=== PATIENT | female | born 1985 | race Caucasian/White ===

== ENCOUNTER → 2025-02-17 14:06 | Outpatient (REF) | payer OTHER, SELFPAY ==
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
--- OUTSIDE RECORDS SUMMARY | 2025-02-13 23:59 | XMS_ITS | Continuity of Care Document ---
Author Organization [facility] Primary [facility] [place] Address [address] [place] [address]- Care Team Providers Care Field Court Researcher Name Role Phone Moncho LOCO, Isamar Schneider Primary Care Physician Encounter [facility] Date(s): 01/14/25 - 02/13/25 [facility] [address] [place], [place] [address] Encounter Type: Triage Allergies, Adverse Reactions, [...] Refills, Maintenance, 01/23/25 10:41:00 AM EDT, Tablet, [facility]/pharmacy #[id number], Partial fill upon patient request if the [...] 12:43:00 PM EDT, Route to Pharmacy Electronically, [facility]/pharmacy #[id number], 172, cm, 12/18/24 12:41:00 EDT, Height, 65, kg, 09/13/24 18:50:00 EDT, Dry Weight Start Date: 01/07/25 Status: Ordered Medication Dispense Status: Completed Quantity: 30.0 Unit: capsule Total Allowed Fills: 3 Fills Dispensed: 0 LORazepam 0.5 mg oral tablet 1 tablet = 0.5 mg, By Mouth, Daily, PRN as needed for anxiety, # 28 tablet, 0 Refills, Maintenance,01/22/25 12:24:00 PM EDT, Tablet, [facility]/pharmacy #[id number], Partial fill upon patient request if [...] Refills, Maintenance, 10/06/24 10:38:00 AM EDT, Cream, [facility]/pharmacy #[id number], Partial fill upon patient request if [...] 11 Refills, Maintenance, 12/02/24 1:01:00 PM EDT, [facility]/pharmacy #[id number], Partial fill upon patient request if [...] Team Personnel Name: Isamar Ivan NP Position: [facility] PCO Associate Professional Member Role: PCP Address: [address] [place] [address] Telecom: Care Team Related Persons Name: ROSALVA ROSEN Name: ARTHUR ROSEN Name: SHERRIE SCHWAB Insurance Providers Guarantor name: ERNST SCHWAB Health Plan Information #: 1 Payer: [facility] Payer Identifier: NA Member Number: [id number] Group Number: [id number] Subscriber Identifier: NA Relationship to Subscriber: self Coverage Type: NA Coverage Verification Date: NA Telecom: NA Address: NA
--- NOTE | 2025-02-17 14:18 | ECG_ITS ---
Test Reason : CHECK QT Blood Pressure : */* mmHG Vent. Rate : 50 BPM Atrial Rate : 50 BPM P-R Int : 136 ms QRS Dur : 86 ms QT Int : 428 ms P-R-T Axes : 43 65 50 degrees QTcB Int : 390 ms Sinus bradycardia Low voltage QRS Borderline ECG No previous ECGs available Referred By: Lashell Carlson Electronically Signed By: ZAFAR RENO
[2025-02-17 14:44] LABS: MANUAL DIFF FLAG NO
[2025-02-17 15:15] LABS: Hematocrit 41.6 % (37.0-47.0); Hemoglobin 13.7 g/dl (12.0-16.0); Imm Gran Abs Auto 0.01 X10*3/uL (0.00-0.03); Imm Gran Pct Auto 0.2 % (0.0-0.4); Lymphocytes Absolute Auto 2.1 X10*3/uL (1.2-4.9); Mean Corpuscular HGB Conc 32.9 g/dl (31.0-35.0); Mean Corpuscular Hemoglobin 31.6 pg (27.0-33.0); Mean Corpuscular Volume 95.9 fL (80.0-98.0); NRBC Abs Auto 0.000 X10*3/uL (0.0-0.012); NRBC Pct Auto 0.0 /100WBC (0.0-0.2); Platelet Count 184 X10*3/uL (160-400); Red Blood Count 4.34 X10*6/uL (4.20-5.50); White Blood Count 4.4 X10*3/uL (4.8-10.8)
[2025-02-17 15:27] LABS: Appearance Urine Clear; Glucose Urine UA Negative (Negative); PH 7.0 (5.0-9.0); Specific Gravity - Urine 1.010 (1.005-1.025)
[2025-02-17 16:14] LABS: Alanine Aminotransferase 24 U/L (0-31); Albumin Level 4.9 g/dL (3.5-5.0); Alkaline Phosphatase 44 U/L (39-117); Anion Gap 10 (12-20); Aspartate Amino Transferase 23 U/L (5-31); Blood Urea Nitrogen 13 mg/dL (9-16); Calcium 9.0 mg/dL (8.4-10.2); Carbon Dioxide 28 mmol/L (22-29); Chloride 108 mmol/L (96-108); Cholesterol 175 mg/dL (<200); Estimated Glomerular Filt Rate > 60; Iron 82 mcg/dL (30-160); Magnesium 1.9 mg/dL (1.6-2.6); Percent Iron Saturation 35 % (15-50); Potassium 3.7 mmol/L (3.3-5.1); Sodium 142 mmol/L (135-145); Total Iron Binding Capacity 231 mcg/dL (228-428); Total Protein 7.1 g/dL (6.5-8.0); Unsaturated Iron Binding 149 ug/dL
[2025-02-17 16:29] LABS: Free T4 (Free Thyroxine) 0.99 ng/dL (0.71-1.85); Thyroid Stimulating Hormone 1.17 uIU/mL (0.32-4.0)
[2025-02-17 16:36] LABS: Vitamin B12 260 pg/mL (200-900)
[2025-02-17 17:13] LABS: Parathyroid Hormone Intact 92.7 pg/mL (8.7-77.1)
[2025-02-17 17:54] LABS: Folate 8.3 ng/mL (> or = 4.0)
--- OUTSIDE RECORDS SUMMARY | 2025-02-17 18:34 | XMS_ITS | Clinical Summary ---
Author Organization [facility] Address [address] [place] [address] Care Team Providers Care Supervisor Advertising Dispatch Clerks Name Role Phone Unavailable Primary Care Provider Unavailabl e Surgical History Surgery Date Site/Laterality Comments EYE SURGERY 2002 Right PROCEDURE: HISTORICAL EYE SURGERY; COMMENT: retinal melanoma, cataract?, residual anoscoria VAGINOSCOPY 02/01/2010 PROCEDURE: AL COLPOSCOPY CERVIX BX CERVIX & ENDOCRV CURRETAGE; COMMENT: LGSIL CERVICAL BIOPSY W/ LOOP ELECTRODE EXCISION 2013 PROCEDURE: AL CONIZATION CERVIX W/WO D&C RPR ELTRD EXC CATARACT EXTRACTION 2004 Right PROCEDURE: HISTORICAL CATARACT REMOVAL Medical History Medical History Date Comments LGSIL on Pap smear of cervix 2009 DX: LGSIL on Pap smear of cervix Raynauds phenomenon 10/05/2016 DX:Raynauds phenomenon; COMMENT: Hands and feet History of malignant melanoma of eye 2002 DX:History of malignant melanoma of eye; COMMENT: Very rare right iris melanoma, radioactive seeds placed, then removed, cataract surgery, glaucoma sequela Glaucoma 10/05/2016 DX:Glaucoma; COM MENT: R eye s/p melanoma Anxiety 10/05/2016 DX:Anxiety PTSD (post-traumatic stress disorder) DX:PTSD (post-traumatic stress disorder); COMMENT: childhood Melanoma in situ (CMS/HCC V2 4, CMS/HCC V28) DX:Melanoma in situ (HCC); C OMMENT: right iris Eating disorder DX:Eating disord er Family History Medical History Relation Name Comments Asthma Brother Diabetes Father Other: retinal vein occlusion Father Other: brain tumor Grandparent GF Stroke Maternal Grandfather COPD Maternal Grandmother Other cancer Maternal Grandmother Arthritis Mother Depression Mother Hyperlipidemia Mother nephrolithias is Hypertension Mother Other: cholelithiasis Mother Other: neuropathy Mother idiopathic , feet Thyroid disease Mother Other: ewings sarcoma Other cousin COPD Paternal Grandmother Relation Name Status Comments Brother Alive Father Alive Grandparent Maternal Grandfather Maternal Grandmother Mother Alive Other Paternal Grandfather Paternal Grandmother Sister Alive Social History Tobacco Use Types Packs/Day Years Used Date Smoking Tobacco: Never Smokeless Tobacco: Never Alcohol Use Standard Drinks/Week Comments Yes 0 (1 standard drink = 0.6 oz pur e alcohol) Comments Unknown Sex and Gender Information Value Date Recorded Sex Assigned at Not on file Legal Sex Female 12:15 PM EST Gender Identity Not on file Sexual Orientation Not on file Obstetrics History Plan of Treatment Health Maintenance Due Date Last Done Comments Breast Cancer Screening 1984 Hepatitis B Vaccines (1 of 3 - 19+ 3-dose series) 2003 Cervical Cancer Screening: P ap Smear 2005 HPV Vaccines (1 - 3-dose SCD M series) 2011 Depression Screening 04/23/2024 COVID-19 Vaccine ( - 2023-2 5 season) 2024 Influenza Vaccine (#1) 2024 DTaP,Tdap,and Td Vaccines (2 - Td or Tdap) 08/16/2030 08/16/2020 RSV Immunization Adult Patie nts (1 - 1-dose 75+ series) 2059 HIB Vaccines Aged Out No longer eligi ble based on patient's age to complete this topic Hepatitis A Vaccines Aged Out No long er eligible based on patient's age to complete this topic IPV Vaccines Aged Out No longer eligi ble based on patient's age to complete this topic MMR Vaccines Aged Out No longer eligi ble based on patient's age to complete this topic Meningococcal ACWY Vaccine Aged Out N o longer eligible based on patient's age to complete this topic Meningococcal B Vaccine Aged Out No l onger eligible based on patient's age to complete this topic Pneumococcal Vaccine: Pediat rics (0 to 5 Years) and At-Risk Patients (6 to 49 Years) Aged Out No longer eligi ble based on patient's age to complete this topic RSV Immunization Patients Un luna 20 months Aged Out No longer eligible b ased on patient's age to complete this topic Varicella Vaccines Aged Out No longer eligible based on patient's age to complete this topic
--- OUTSIDE RECORDS SUMMARY | 2025-02-17 18:34 | XMS_ITS | Encounter Summary ---
Author Organization [facility] Address [address] [place] [address] Care Team Providers Care Sole Cementer Name Role Phone Unavailable Primary Care Provider Unavailabl e Encounter Details Date Type Department Care Team Description 09/05/2016 Records Encounter Delivery Room [address] [place] [id number] Provider, Not In System Social History Tobacco Use Types Packs/Day Years Used Date Smoking Tobacco: Never Alcohol Use Standard Drinks/Week Comments Yes 2 (1 standard drink = 0.6 oz pur e alcohol) Sex and Gender Information Value Date Recorded Sex Assigned at Not on file Gender Identity Not on file Sexual Orientation Not on file documented as of this encounter Functional Status Functional Status Response Date of Assess ment Pt deaf or have serious difficulty hearing? No 09/04/2016 Pt blind or have difficulty seeing, even with gl asses? No 09/04/2016 Do you have serious difficul ty walking or climbing stairs? (Retired) No 09/04/2016 Pt have difficulty dressing or bathing? (Retired ) No 09/04/2016 Pt have difficulty doing errands alone? (Retired ) No 09/04/2016 Cognitive Status Response Date of Assessm ent Pt have difficulty concentra ting, remembering, making decisions? (Retired) No 09/04/2016 documented as of this encounter Plan of Treatment Not on file documented as of this encounter Visit Diagnoses Not on filedocumented in this encounter
--- OUTSIDE RECORDS SUMMARY | 2025-02-17 18:34 | XMS_ITS | Encounter Summary ---
Author Organization [facility] Address [address] [place] [address] Care Team Providers Care Instrumentation Instructor Name Role Phone Unavailable Primary Care Provider Unavailabl e Encounter Details Date Type Department Care Team Description 08/23/2016 Records Encounter Delivery Room [address] [place] [id number] Provider, Not In System Social History Tobacco Use Types Packs/Day Years Used Date Smoking Tobacco: Never Alcohol Use Standard Drinks/Week Comments Yes 2 (1 standard drink = 0.6 oz pur e alcohol) Comments Yes Sex and Gender Information Value Date Recorded Sex Assigned at Not on file Gender Identity Not on file Sexual Orientation Not on file documented as of this encounter Functional Status Functional Status Response Date of Assess ment Pt deaf or have serious difficulty hearing? No 08/01/2016 Pt blind or have difficulty seeing, even with gl asses? No 08/01/2016 Do you have serious difficul ty walking or climbing stairs? (Retired) No 08/01/2016 Pt have difficulty dressing or bathing? (Retired ) No 08/01/2016 Pt have difficulty doing errands alone? (Retired ) No 08/01/2016 Cognitive Status Response Date of Assessm ent Pt have difficulty concentra ting, remembering, making decisions? (Retired) No 08/01/2016 documented as of this encounter Plan of Treatment Not on file documented as of this encounter Visit Diagnoses Not on filedocumented in this encounter
--- OUTSIDE RECORDS SUMMARY | 2025-02-17 18:34 | XMS_ITS | Clinical Summary ---
Author Organization [facility] Address [address] [place] [address] Care Team Providers Care Retort Load Expediter Name Role Phone Unavailable Primary Care Provider Unavailabl e Allergies Active Allergy Reactions Criticality Noted Date Comments Zolpidem Shortness Of Breath High 09/04/2016 Possible allergy. Took w reglan and pepcid. Doesn't know which cause reaction Famotidine Shortness Of Breath High 09/04/2016 Metoclopramide Shortness Of Breath High 09/04/2016 Poss allergy Medications Medication Sig Dispensed Refills Start Date End Date Status escitalopram (LEXAPRO) 10 MG tablet Take 0.5 tablets (5 mg total) by mouth daily. 30 tablet 0 12/30/2013 Active Vit-Fe Fumarate-FA ( PLUS) 27-1 MG TABS tablet Take 1 tablet by mouth every morning after breakfast. 0 Active metoclopramide (REGLAN) tablet 10 mg Take 1 tablet (10 mg total) by mouth every 6 (six) hours as needed (nausea/vomiting) . 30 tablet 0 08/01/2016 Active famotidine (PEPCID) 20 MG tablet Take 1 tablet (20 mg total) by mouth 2 (two) times a day. 60 tablet 1 08/01/2016 Active zolpidem (AMBIEN) 5 MG tablet Take 1 tablet (5 mg total) by mouth every night at bedtime as needed for sleep. 5 tablet 0 08/01/2016 Active Active Problems Problem Noted Date Diagnosed Date Vaginal delivery 09/07/2016 Social History Tobacco Use Types Packs/Day Years Used Date Smoking Tobacco: Never Alcohol Use Standard Drinks/Week Comments Yes 2 (1 standard drink = 0.6 oz pur e alcohol) Sex and Gender Information Value Date Recorded Sex Assigned at Not on file Gender Identity Not on file Sexual Orientation Not on file Last Filed Vital Signs Vital Sign Reading Time Taken Comments Blood Pressure 108/72 09/07/2016 10:00 AM EDT Pulse 66 09/07/2016 10:00 AM EDT Temperature 36.4 C (97.6 F) 09/07/2016 10:00 AM EDT Respiratory Rate 18 09/07/2016 10:00 AM EDT Oxygen Saturation 100% 09/07/2016 10:00 AM EDT Inhaled Oxygen Concentration - - Weight 70.3 kg (155 lb) 09/05/2016 10:00 AM EDT Height 172.7 cm (5' 8 ) 09/05/2016 10:00 AM EDT Body Mass Index 23.57 09/05/2016 10:00 AM EDT Plan of Treatment Health Maintenance Due Date Last Done Comments Hepatitis B Vaccines (1 of 3 - 3-dose series) 1984 Hepatitis C Screening 1984 COVID-19 Vaccine (#1) 1984 Depression Screening 1996 Preventative Health Evaluation 2002 DTap / Tdap / Td (1 - Tdap) 2003 Cervical Cancer Screening (P ap Smear) 2005 Influenza Vaccine (#1) 2024 Pneumococcal Vaccine Aged Out No long er eligible based on patient's age to complete this topic RSV Ped < 20 months Aged Out No longe r eligible based on patient's age to complete this topic Advance Directives For more information, please contact: [phone] Latest Code Status on File Code Status Date Activated Date Inactivated Comments Full Code 09/04/2016 8:38 PM 09/07/2016 7:23 PM This code status was ascertained in the following way: discussion with patient.
--- OUTSIDE RECORDS SUMMARY | 2025-02-17 18:34 | XMS_ITS | Data Portability ---
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 Plan of Treatment Reminders Order Date Submit Date Provider Last Modified By Organization Details Last Modified Time Details Appointments None recorded. Lab toxicolog y screen, urine 2019 020 [email or web address] In-Office Order, Internal Use Only DO Not Attach Compendium DO Not Attach Compendium, Do Not Delete/merge, [id number] 0 16:01:59 HIV 1+2 AB + HIV 1 p24 Ag, qualitati ve immunoass ay, serum 2019 Formerly [facility], [address] [place] [address], [id number] 0 12:51:25 CBC w/ auto diff 2019 Formerly [facility], [address] [place] [address], [id number] 0 12:51:17 RPR (rapid plasma reagin), serum 2019 Formerly [facility], [address] [place] [address], 0 12:51:26 HBsAg (hepatiti s B surface Ag), confirmat ion, serum 2019 Formerly [facility], [address] [place] [address], [id number] 0 12:51:25 rubella igg Ab screen, serum 2019 Formerly [facility], [address] [place] [address], [id number] 0 12:51:15 hepatitis C Ab, serum 2019 [facility]ly [facility], [address] [place] [address], [id number] 0 12:51:26 glucose tolerance test, gestation al, 1-hour [address] [facility], [address] [place] [address], [address] 1 16:32:18 blood group antibody screen, serum or plasma [address] [facility], [address] [place] [address], [facility] 1 16:32:18 chromosom e analysis panel, FISH, blood or tissue [address] [facility], [address] [place] [address], [facility] 1 16:32:19 urinalysi s, dipstick 2019 [email or web address] In-Office Order, Internal Use Only DO Not Attach Compendium DO Not Attach Compendium, Do Not Delete/merge, [id number] 0 08:17:55 CT + NG DNA, PCR, unspecifi ed specimen 2019 Formerly [facility], [address] [place] [address], [id number] 0 12:01:49 culture, urine 2019 [facility]ly [facility], [address] [place] [address], [id number] 0 08:27:59 test, urine 2019 020 [email or web address] In-Office Order, Internal Use Only DO Not Attach Compendium DO Not Attach Compendium, Do Not Delete/merge, [id number] 0 10:33:27 culture, vaginal, yeast - PLEAE RUN CULTURE WITH ID AND SENSITIVI TIES 2018 019 [email or web address] [facility], [address] [facility], [facility], [place], [address], 9 09:58:07 pap, IG + HPV 2018 019 [facility]ly [facility], [address] [facility], [place], [address] 9 11:53:57 urinalysi s, dipstick 2018 019 [email or web address] In-Office Order, Internal Use Only DO Not Attach Compendium DO Not Attach Compendium, Do Not Delete/merge, 9 17:25:21 ph, vaginal fluid 2017 018 [email or web address] In-Office Order, Internal Use Only DO Not Attach Compendium DO Not Attach Compendium, Do Not Delete/merge, 8 14:24:11 wet mount, vaginal 2017 018 [email or web address] In-Office Order, Internal Use Only DO Not Attach Compendium DO Not Attach Compendium, Do Not Delete/merge, 8 14:24:12 otto wet prep 2017 018 [email or web address] In-Office Order, Internal Use Only DO Not Attach Compendium DO Not Attach Compendium, Do Not Delete/merge, 8 14:24:11 whiff test, vaginal fluid 2017 018 [email or web address] In-Office Order, Internal Use Only DO Not Attach Compendium DO Not Attach Compendium, Do Not Delete/merge, 8 14:24:12 urinalysi s, dipstick 2017 018 [email or web address] In-Office Order, Internal Use Only DO Not Attach Compendium DO Not Attach Compendium, Do Not Delete/merge, 8 16:22:28 urinalysi s, dipstick 2016 017 [email or web address] In-Office Order, Internal Use Only DO Not Attach Compendium DO Not Attach Compendium, Do Not Delete/merge, [id number] 7 17:21:35 Referral None recorded. Procedures None recorded. Surgeries None recorded. Imaging None recorded. Medication Orders triamcino lone acetonide 0.1 % topical ointment 2019 020 INTERFACE [facility] #[facility]69, [address] [place], [address], 0 10:33:36 betametha sone valerate 0.1 % topical ointment [address]/Pharmacy #0969, [address] [place], [address], 0 09:05:27 hydrocort isone 2.5 % topical ointment [address]/[facility]armacy #0969, [address] [place], [address], 0 09:05:20 Larissia 0.1 mg-20 mcg tablet [address]/[facility]armacy #0969, [address] [place], [address], 0 09:05:14 Cleocin 2 % vaginal cream 2017 018 [email or web address] [facility], [address] [place], [address], 9 16:25:44 fluconazo le 150 mg tablet [address]/Pharmacy #0969, [address] [place], [address], 0 09:05:25 Larissia 0.1 mg-20 mcg tablet [address]/[facility]armacy #[facility]69, [address] [place], [address], 0 09:05:14 betametha sone valerate 0.1 % topical ointment 2017 018 [email or web address] [facility], [address] [place], [address], 0 09:05:27 nystatin- triamcino lone 100,000 unit/gram -0.1 % topical ointment 2016 017 [email or web address] [facility], [address] [place], [address], 8 13:41:00 Aviane 0.1 mg-20 mcg tablet 2016 017 [email or web address] [facility] #[facility], [address] [place], [address], 0 09:05:14 Patient TargetsNo targets recorded. Patient Instructions Encounter Date Encounter Id Patient Instructions Last Modified By Organization Details Last Modified Time 01/08/2017 [id number] B E encouraged Discussed wt, diet, nutrition, exercise. If history of normal pap and neg HPV will continue with Pap/HPV every 3 years, otherwise per guidelines. Annual clinical assistant professor exam encouraged every year or visits as needed for any problems. Not available 01/08/2017 17:28:24 01/16/2018 [id number] BE encouraged Discussed wt, diet, nutrition, exercise. If history of normal pap and neg HPV will continue with Pap/HPV every 3 years, otherwise per guidelines. Annual clinical assistant professor exam encouraged every year or visits as needed for any problems. Not available 01/16/2018 16:22:27 03/16/2020 [id number] BE encouraged Discussed wt, diet, nutrition, exercise. If history of normal pap and neg HPV will continue with Pap/HPV every 3 years, otherwise per guidelines. Annual clinical assistant professor exam encouraged every year or visits as needed for any problems. Not available 03/16/2020 10:54:33 Reason for Referral None Reported. Results Created Date Observation Date Name Description Value Unit Range Abnormal Flag Note LastModifiedBy Organization Detail LastModifiedTime 04/07/20 20 04/07/2020 toxic ology scree n, urine Marijuana (THC) negati ve Not Available In-Office Order Internal Use Only DO Not Attach Compendium DO Not Attach Compendium, Do Not Delete/merge, [id number] 04/07/2020 15:29:44 04/07/20 20 04/07/2020 toxic ology scree n, urine Cocaine (GRADY 300) negati ve Not Available In-Office Order Internal Use Only DO Not Attach Compendium DO Not Attach Compendium, Do Not Delete/merge, 04/07/2020 15:29:44 04/07/20 20 04/07/2020 toxic ology scree n, urine Opiates (MOP) negati ve Not Available In-Office Order Internal Use Only DO Not Attach Compendium DO Not Attach Compendium, Do Not Delete/merge, [id number] 04/07/2020 15:29:44 04/07/20 20 04/07/2020 toxic ology scree n, urine Amphetamine (AMP) negati ve Not Available In-Office Order Internal Use Only DO Not Attach Compendium DO Not Attach Compendium, Do Not Delete/merge, 04/07/2020 15:29:44 04/07/20 20 04/07/2020 toxic ology scree n, urine Methamphetam ine (MET) negati ve Not Available In-Office Order Internal Use Only DO Not Attach Compendium DO Not Attach Compendium, Do Not Delete/merge, [id number] 04/07/2020 15:29:44 04/07/20 20 04/07/2020 toxic ology scree n, urine Barbiturates (BAR) negati ve Not Available In-Office Order Internal Use Only DO Not Attach Compendium DO Not Attach Compendium, Do Not Delete/merge, 04/07/2020 15:29:44 04/07/20 20 04/07/2020 toxic ology scree n, urine Benzodiazepi jarrett (BZO) negati ve Not Available In-Office Order Internal Use Only DO Not Attach Compendium DO Not Attach Compendium, Do Not Delete/merge, [id number] 04/07/2020 15:29:44 04/07/20 20 04/07/2020 toxic ology scree n, urine Methylenedio xymethamphet amine (MDMA Ecstasy) negati ve Not Available In-Office Order Internal Use Only DO Not Attach Compendium DO Not Attach Compendium, Do Not Delete/merge, [id number] 04/07/2020 15:29:44 04/07/20 20 04/07/2020 toxic ology scree n, urine Methadone (MTD) negati ve Not Available In-Office Order Internal Use Only DO Not Attach Compendium DO Not Attach Compendium, Do Not Delete/merge, [id number] 04/07/2020 15:29:44 04/07/20 20 04/07/2020 toxic ology scree n, urine Oxycodone (OXY) negati ve Not Available In-Office Order Internal Use Only DO Not Attach Compendium DO Not Attach Compendium, Do Not Delete/merge, [id number] 04/07/2020 15:29:44 04/07/20 20 04/07/2020 toxic ology scree n, urine Phencyclidin e (PCP) negati ve Not Available In-Office Order Internal Use Only DO Not Attach Compendium DO Not Attach Compendium, Do Not Delete/merge, [id number] 04/07/2020 15:29:44 04/07/20 20 04/07/2020 toxic ology scree n, urine Tricyclic Antidepressa nts (TCA) negati ve Not Available In-Office Order Internal Use Only DO Not Attach Compendium DO Not Attach Compendium, Do Not Delete/merge, [id number] 04/07/2020 15:29:44 03/16/20 20 03/16/2020 pregn tong test, urine Result positi ve Not Available In-Office Order Internal Use Only DO Not Attach Compendium DO Not Attach Compendium, Do Not Delete/merge, [id number] 03/16/2020 10:30:15 01/17/20 18 01/16/2018 otto wet prep Hyphae Absent Not Available In-Office Order Internal Use Only DO Not Attach Compendium DO Not Attach Compendium, Do Not Delete/merge, [id number] 01/16/2018 14:17:40 01/17/20 18 01/16/2018 otto wet prep Yeast Absent Not Available In-Office Order Internal Use Only DO Not Attach Compendium DO Not Attach Compendium, Do Not Delete/merge, [facility] 01/16/2018 14:17:40 01/17/20 18 01/16/2018 wet mount , vagin al Wet Mount, Vaginal WBCs > 10 per hpf, no yeast, no Clue Cells, LB seen Not Available In-Office Order Internal Use Only DO Not Attach Compendium DO Not Attach Compendium, Do Not Delete/merge, [facility] 01/16/2018 14:17:39 01/17/20 18 01/16/2018 ph, vagin al fluid Other 4.0 Not Available In-Office Order Internal Use Only DO Not Attach Compendium DO Not Attach Compendium, Do Not Delete/merge, [facility] 01/16/2018 14:17:37 01/09/20 17 01/10/2017 urina lysis , dipst ick Interpretati on negati ve Not Available In-Office Order Internal Use Only DO Not Attach Compendium DO Not Attach Compendium, Do Not Delete/merge, [facility] 01/08/2017 11:03:31 01/09/2001/10/2017 urina lysis , dipst ick Leukocytes Negati ve Not Available In-Office Order Internal Use Only DO Not Attach Compendium DO Not Attach Compendium, Do Not Delete/merge, [facility] 01/08/2017 11:03:31 01/09/2001/10/2017 urina lysis , dipst ick Nitrite negati ve Not Available In-Office Order Internal Use Only DO Not Attach Compendium DO Not Attach Compendium, Do Not Delete/merge, [facility] 01/08/2017 11:03:31 01/09/2001/10/2017 urina lysis , dipst ick Urobilinogen Normal : 0.2 mg/dl Not Available In-Office Order Internal Use Only DO Not Attach Compendium DO Not Attach Compendium, Do Not Delete/merge, [id number] 01/08/2017 11:03:31 01/09/20 17 01/10/2017 urina lysis , dipst ick Protein Negati ve Not Available In-Office Order Internal Use Only DO Not Attach Compendium DO Not Attach Compendium, Do Not Delete/merge, [facility] 01/08/2017 11:03:31 01/09/2001/10/2017 urina lysis , dipst ick Blood Negati ve Not Available In-Office Order Internal Use Only DO Not Attach Compendium DO Not Attach Compendium, Do Not Delete/merge, [facility] 01/08/2017 11:03:31 01/09/2001/10/2017 urina lysis , dipst ick Ketone Negati ve Not Available In-Office Order Internal Use Only DO Not Attach Compendium DO Not Attach Compendium, Do Not Delete/merge, [facility] 01/08/2017 11:03:31 01/09/20 17 01/10/2017 urina lysis , dipst ick Bilirubin Negati ve Not Available In-Office Order Internal Use Only DO Not Attach Compendium DO Not Attach Compendium, Do Not Delete/merge, [facility] 01/08/2017 11:03:01/09/20 17 01/10/2017 urina lysis , dipst ick Glucose Negati ve Not Available In-Office Order Internal Use Only DO Not Attach Compendium DO Not Attach Compendium, Do Not Delete/merge, [facility] 01/08/2017 11:03:01/09/2001/10/2017 urina lysis , dipst ick Appearance Clear Not Available In-Offi ce Order Internal Use Only DO Not Attach Compendium DO Not Attach Compendium, Do Not Delete/merge, [facility] 01/08/2017 11:03:01/09/2001/10/2017 urina lysis , dipst ick Color Yellow Not Available In-Office Order Internal Use Only DO Not Attach Compendium DO Not Attach Compendium, Do Not Delete/merge, [facility] 01/08/2017 11:03:01/09/2001/10/2017 urina lysis , dipst ick pH 7.0 Not Available In-Office Order Internal Use Only DO Not Attach Compendium DO Not Attach Compendium, Do Not Delete/merge, [facility] 01/08/2017 11:03:01/17/20 18 01/16/2018 urina lysis , dipst ick Interpretati on negati ve Not Available In-Office Order Internal Use Only DO Not Attach Compendium DO Not Attach Compendium, Do Not Delete/merge, [facility] 01/16/2018 13:54:11 01/17/20 18 01/16/2018 urina lysis , dipst ick Leukocytes Small: +1 Not Available In-Office Order Internal Use Only DO Not Attach Compendium DO Not Attach Compendium, Do Not Delete/merge, [facility] 01/16/2018 13:54:11 01/17/20 18 01/16/2018 urina lysis , dipst ick Nitrite negati ve Not Available In-Office Order Internal Use Only DO Not Attach Compendium DO Not Attach Compendium, Do Not Delete/merge, [facility] 01/16/2018 13:54:11 01/17/20 18 01/16/2018 urina lysis , dipst ick Urobilinogen Normal : 0.2 mg/dl Not Available In-Office Order Internal Use Only DO Not Attach Compendium DO Not Attach Compendium, Do Not Delete/merge, [facility] 01/16/2018 13:54:01/17/20 18 01/16/2018 urina lysis , dipst ick Protein Trace Not Available In-Office Order Internal Use Only DO Not Attach Compendium DO Not Attach Compendium, Do Not Delete/merge, [facility] 01/16/2018 13:54:01/17/20 18 01/16/2018 urina lysis , dipst ick pH 5.0 Not Available In-Office Order Internal Use Only DO Not Attach Compendium DO Not Attach Compendium, Do Not Delete/merge, [facility] 01/16/2018 13:54:01/17/20 18 01/16/2018 urina lysis , dipst ick Blood Negati ve Not Available In-Office Order Internal Use Only DO Not Attach Compendium DO Not Attach Compendium, Do Not Delete/merge, [facility] 01/16/2018 13:54:01/17/20 18 01/16/2018 urina lysis , dipst ick Ketone Negati ve Not Available In-Office Order Internal Use Only DO Not Attach Compendium DO Not Attach Compendium, Do Not Delete/merge, [facility] 01/16/2018 13:54:11 01/17/20 18 01/16/2018 urina lysis , dipst ick Bilirubin Negati ve Not Available In-Office Order Internal Use Only DO Not Attach Compendium DO Not Attach Compendium, Do Not Delete/merge, [id number] 01/16/2018 13:54:11 01/17/20 18 01/16/2018 urina lysis , dipst ick Glucose Negati ve Not Available In-Office Order Internal Use Only DO Not Attach Compendium DO Not Attach Compendium, Do Not Delete/merge, [id number] 01/16/2018 13:54:11 01/17/20 18 01/16/2018 urina lysis , dipst ick Appearance Clear Not Available In-Offi ce Order Internal Use Only DO Not Attach Compendium DO Not Attach Compendium, Do Not Delete/merge, [id number] 01/16/2018 13:54:11 01/17/20 18 01/16/2018 urina lysis , dipst ick Color Dark Yellow Not Available In-Office Order Internal Use Only DO Not Attach Compendium DO Not Attach Compendium, Do Not Delete/merge, [id number] 01/16/2018 13:54:11 01/17/20 18 01/16/2018 whiff test, vagin al fluid Result negati ve Not Available In-Office Order Internal Use Only DO Not Attach Compendium DO Not Attach Compendium, Do Not Delete/merge, [id number] 01/16/2018 14:23:59 03/07/20 19 03/07/2019 fungu s, cultu re, unspe cifie d speci men specimen description VAGINA L Not Available [address], [address], 03/13/2019 09:24:39 03/07/20 19 03/07/2019 fungu s, cultu re, unspe cifie d speci men special requests NONE Not Available [address], [address], 03/13/2019 09:24:39 03/07/20 19 03/13/2019 fungu s, cultu re, unspe cifie d speci men culture CANDID A ALBICA NS SENT TO REFER ENCE [facility] FOR SUSCE PTIBI LITIE S SEE SEPAR ATE REPOR T Not Available [address], [address], 03/13/2019 09:24:39 03/07/20 19 03/13/2019 fungu s, cultu re, unspe cifie d speci men report status FINAL 2018 Not Available [address], [address], 03/13/2019 09:24:39 03/07/20 19 03/07/2019 HPV DNA, high- risk HPV MRNA E6/E7 Negati ve negati ve APTIM A HPV assay detec ts 14 high risk HPV types (HPV 16,18 ,31,3 3,35, 39,45 ,51,5 2,56, 58,59 ,66,6 8). The assay is FDA appro jose m for testi ng ThinP rep liqui d Pap vials but not FDA appro jose m for detec ting HPV in SureP ath liqui d Pap speci mens. In-ho use valid ation has shown the assay can detec t all [facility] types [facility] Not Available [facility] [address] [place], [address] 03/14/2019 11:53:55 03/07/20 19 03/07/2019 pap, IG + HPV report Report Final Gynec ologi geoff Cytol ogy Repor t ----- ----- ----- ----- ----- ----- ----- ----- ----- ----- ----- ----- ThinP rep Pap Test, HPV Scree n, Refle x HPV Genot ype SPECI MEN ADEQU ACY: SATIS FACTO RY FOR EVALU ATION ; ENDOC ERVIC AL/TR ANSFO RMATI ON ZONE COMPO NENT PRESE NT. INTER PRETA TION: NEGAT ETTA FOR INTRA EPITH ELIAL SIMEON Khan OR INDIRA MARQUEZ . Ching Mukherjee d: Bertha De Los Santos, [place] (ASCP ) ----- ----- ----- ----- ----- ----- ----- ----- ----- ----- ----- ----- CLINI GEOFF INFOR MATIO N: LMP: ng Speci men Sourc e: Cervi x, Endoc ervix HPV RESUL TS: HPV mRNA E6/E7 [id number] Appro jose m: 03/10 Negat etta REF RANGE : Negat etta CPT Codes : 25129 ICD Codes : Z01.4 19 Not Available [facility] [address] [place], [address] 03/14/2019 11:53:57 03/07/20 19 03/17/2019 funga l susce ptibi lity fungal susceptibili ty See Below < > Test Reque sted Antim icrob ial Susce ptibi lity - Funga l (Yeas ts and Molds ) Sourc e: Genit al Body Site: Vagin a Free Text Sourc es: Genit al Final Repor t Janet da albic ans Ident ifica tion by MALDI -TOF Test cristina mccoy and johanna doranri stics deter mined by [facility]. See Compl iance State ment B: [email or web address] m/CS Susce ptibi lity Resul ts Organ ism: Janet da albic ans 5-Flu orocy yoselin e Inter preta tion: NO INTER PRETA TION THUY (ug/m L): 0.25 Ampho teric in B Inter preta tion: NO INTER PRETA TION THUY (ug/m L): 0.5 Anidu lafun gin Inter preta tion: SUSCE PTIBL E THUY (ug/m L): <=0.0 16 Caspo fungi n Inter preta tion: SUSCE PTIBL E THUY (ug/m L): 0.016 Fluco nazol e Inter preta tion: SUSCE PTIBL E THUY (ug/m L): 0.25 Itrac onazo le Inter preta tion: NO INTER PRETA TION THUY (ug/m L): 0.06 Micaf ungin Inter preta tion: SUSCE PTIBL E THUY (ug/m L): 0.016 Posac onazo le Inter preta tion: NO INTER PRETA TION THUY (ug/m L): 0.03 Voric onazo le Inter preta tion: SUSCE PTIBL E THUY (ug/m L): <=0.0 08 Order Comme nts THUY=M inimu m Inhib itory Giselle ntrat ion MEC=M inimu m Effec tive Giselle ntrat ion S=Alyssa cepti ble, I=Int ermed iate, R=Res istan t, NonS= Nonsu scept ible, IND=I ndete rmina te, SDD=S uscep tibil ity is dose depen dent, None= Inter preti ve guide lines are not avail able H=Hig h, L=Low , *=Abn ormal , C=Cri tical Test( s) perfo rmed at [facility] Labor atori es [address] [place] [address] Antoni Vaughn do, MD, MS, Labor atory Dire tor Not Available [address], [address], 03/17/2019 16:33:31 03/07/20 19 03/13/2019 misce llane ous test test name SENSIT IVITIE S TO CLOTRI MAZOLE AND TERCON AZOLE Not Available [address], [address], 03/28/2019 10:39:11 03/07/20 19 03/28/2019 misce llane ous test result Final Funga l Testi ng Repor t Sourc e: Vagin al Speci es ID Provi ded: Janet da albic ans RESUL TS OF ANTIF UNGAL SUCEP TIBIL ITY TESTI NG: DRUGS : mcg.m L Clotr imazo le (CLOT ): <=0.0 3 INTER PRETA TION: No Estab lishe d Break point s Terco nazol e (TERC ): <=0.1 25 INTER PRETA TION: No Estab lishe d Break point s Metho dolog y: CLSI M27 Testi ng perfo rmed by: Katrin Angela thy (Anti funga l Susce ptibi lity) Comme nt: Pleas e note that inter preta tions for antif ungal susce ptibi lity testi ng are based on those publi shed in the CLSI M60 docum ent. These brad ed inter preta tions apply only to speci fic Janet da speci es. Perfo rmed at: [facility]: Path Lab: Fungu s Testi ng Lab, [address] [place], [address] Not Available [address], [address], 03/28/2019 10:39:11 03/07/20 19 03/07/2019 urina lysis , dipst ick Interpretati on negati ve Not Available In-Office Order Internal Use Only DO Not Attach Compendium DO Not Attach Compendium, Do Not Delete/merge, [id number] 03/07/2019 16:15:27 03/07/20 19 03/07/2019 urina lysis , dipst ick Leukocytes Negati ve Not Available In-Office Order Internal Use Only DO Not Attach Compendium DO Not Attach Compendium, Do Not Delete/merge, [id number] 03/07/2019 16:15:27 03/07/20 19 03/07/2019 urina lysis , dipst ick Nitrite negati ve Not Available In-Office Order Internal Use Only DO Not Attach Compendium DO Not Attach Compendium, Do Not Delete/merge, [id number] 03/07/2019 16:15:27 03/07/20 19 03/07/2019 urina lysis , dipst ick Urobilinogen Normal : 0.2 mg/dl Not Available In-Office Order Internal Use Only DO Not Attach Compendium DO Not Attach Compendium, Do Not Delete/merge, [id number] 03/07/2019 16:15:27 03/07/20 19 03/07/2019 urina lysis , dipst ick Protein Negati ve Not Available In-Office Order Internal Use Only DO Not Attach Compendium DO Not Attach Compendium, Do Not Delete/merge, [id number] 03/07/2019 16:15:27 03/07/20 19 03/07/2019 urina lysis , dipst ick pH 5.0 Not Available In-Office Order Internal Use Only DO Not Attach Compendium DO Not Attach Compendium, Do Not Delete/merge, [id number] 03/07/2019 16:15:27 03/07/20 19 03/07/2019 urina lysis , dipst ick Blood Negati ve Not Available In-Office Order Internal Use Only DO Not Attach Compendium DO Not Attach Compendium, Do Not Delete/merge, [id number] 03/07/2019 16:15:27 03/07/20 19 03/07/2019 urina lysis , dipst ick Ketone Negati ve Not Available In-Office Order Internal Use Only DO Not Attach Compendium DO Not Attach Compendium, Do Not Delete/merge, [id number] 03/07/2019 16:15:27 03/07/20 19 03/07/2019 urina lysis , dipst ick Bilirubin Negati ve Not Available In-Office Order Internal Use Only DO Not Attach Compendium DO Not Attach Compendium, Do Not Delete/merge, [id number] 03/07/2019 16:15:27 03/07/20 19 03/07/2019 urina lysis , dipst ick Glucose Negati ve Not Available In-Office Order Internal Use Only DO Not Attach Compendium DO Not Attach Compendium, Do Not Delete/merge, [id number] 03/07/2019 16:15:27 03/07/20 19 03/07/2019 urina lysis , dipst ick Appearance Clear Not Available In-Offi ce Order Internal Use Only DO Not Attach Compendium DO Not Attach Compendium, Do Not Delete/merge, [id number] 03/07/2019 16:15:27 03/07/20 19 03/07/2019 urina lysis , dipst ick Color Yellow Not Available In-Office Order Internal Use Only DO Not Attach Compendium DO Not Attach Compendium, Do Not Delete/merge, [id number] 03/07/2019 16:15:27 03/17/20 20 03/17/2020 cultu re, urine urine source URINE, CLEAN CATCH Not Available [facility] [address] [place] [address], [id number] 03/19/2020 08:27:59 03/17/20 20 03/17/2020 cultu re, urine micro culture result Steril e or <1,000 col/mL . Not Available [facility] [address] [place], [address] 03/19/2020 08:27:59 03/17/2003/17/2020 CT + NG DNA, PCR, unspe cifie d speci men neisseria gonorrhoeae RNA, tma Negati ve negati ve Not Available [facility] [address] [place], [address] 03/19/2020 12:01:49 03/17/2003/17/2020 CT + NG DNA, PCR, unspe cifie d speci men chlamydia trachomatis RNA, tma Negati ve negati ve Not Available [facility] [address] [place], [address] 03/19/2020 12:01:49 04/01/2004/01/2020 urina lysis , dipst ick Interpretati on negati ve Not Available In-Office Order Internal Use Only DO Not Attach Compendium DO Not Attach Compendium, Do Not Delete/merge, [id number] 03/16/2020 09:14:46 04/01/20 20 04/01/2020 urina lysis , dipst ick Leukocytes Negati ve Not Available In-Office Order Internal Use Only DO Not Attach Compendium DO Not Attach Compendium, Do Not Delete/merge, [id number] 03/16/2020 09:14:46 04/01/20 20 04/01/2020 urina lysis , dipst ick Nitrite negati ve Not Available In-Office Order Internal Use Only DO Not Attach Compendium DO Not Attach Compendium, Do Not Delete/merge, [id number] 03/16/2020 09:14:46 04/01/20 20 04/01/2020 urina lysis , dipst ick Urobilinogen Normal : 0.2 mg/dl Not Available In-Office Order Internal Use Only DO Not Attach Compendium DO Not Attach Compendium, Do Not Delete/merge, [id number] 03/16/2020 09:14:46 04/01/20 20 04/01/2020 urina lysis , dipst ick Protein Negati ve Not Available In-Office Order Internal Use Only DO Not Attach Compendium DO Not Attach Compendium, Do Not Delete/merge, [id number] 03/16/2020 09:14:46 12/10/04/01/2020 urina lysis , dipst ick pH 5.0 Not Available In-Office Order Internal Use Only DO Not Attach Compendium DO Not Attach Compendium, Do Not Delete/merge, [id number] 03/16/2020 09:14:46 04/01/20 20 04/01/2020 urina lysis , dipst ick Blood Negati ve Not Available In-Office Order Internal Use Only DO Not Attach Compendium DO Not Attach Compendium, Do Not Delete/merge, [id number] 03/16/2020 09:14:46 04/01/20 20 04/01/2020 urina lysis , dipst ick Specific [place] 1.000 Not Available In-Off ice Order Internal Use Only DO Not Attach Compendium DO Not Attach Compendium, Do Not Delete/merge, [id number] 03/16/2020 09:14:46 04/01/20 20 04/01/2020 urina lysis , dipst ick Ketone Negati ve Not Available In-Office Order Internal Use Only DO Not Attach Compendium DO Not Attach Compendium, Do Not Delete/merge, [id number] 03/16/2020 09:14:46 04/01/20 20 04/01/2020 urina lysis , dipst ick Bilirubin Negati ve Not Available In-Office Order Internal Use Only DO Not Attach Compendium DO Not Attach Compendium, Do Not Delete/merge, [id number] 03/16/2020 09:14:46 04/01/20 20 04/01/2020 urina lysis , dipst ick Glucose Negati ve Not Available In-Office Order Internal Use Only DO Not Attach Compendium DO Not Attach Compendium, Do Not Delete/merge, [id number] 03/16/2020 09:14:46 04/01/20 20 04/01/2020 urina lysis , dipst ick Appearance Clear Not Available In-Offi ce Order Internal Use Only DO Not Attach Compendium DO Not Attach Compendium, Do Not Delete/merge, [id number] 03/16/2020 09:14:46 04/01/20 20 04/01/2020 urina lysis , dipst ick Color Yellow Not Available In-Office Order Internal Use Only DO Not Attach Compendium DO Not Attach Compendium, Do Not Delete/merge, [id number] 03/16/2020 09:14:46 04/07/2004/07/2020 rubel la igg Ab scree n, serum rubella antibody IgG 3.2 ai >0.9 Posit etta. IgG antib patti to Rubel la detec elliot. IgG antib patti level s are at a level consi dered to indic ate posit etta immun ity. Not Available [facility] [address] [place], [id number] 04/08/2020 12:51:15 04/07/2004/07/2020 CBC w/ auto diff white blood cell 8.5 thou/ uL 4.0-11 .0 Not Available [facility] [address], [place], [facility] 04/08/2020 12:51:17 04/07/2004/07/2020 CBC w/ auto diff red blood cell 4.29 mil/u L 4.00-5 .40 Not Available [facility] [address], [facility] 04/08/2020 12:51:17 04/07/2004/07/2020 CBC w/ auto diff hemoglobin 13.6 g/dL 11.7-1 5.7 Not Available [facility] [address], [place], [facility] 04/08/2020 12:51:17 04/07/2004/07/2020 CBC w/ auto diff hematocrit 42.3 % 35.0-4 7.0 Not Available [facility] [address], [facility] 04/08/2020 12:51:17 04/07/2004/07/2020 CBC w/ auto diff mean corpuscular volume 99 fL 80-100 Not Available [facility] [address] [place], [id number] 04/08/2020 12:51:17 04/07/2004/07/2020 CBC w/ auto diff mean corpuscular hemoglobin 31.7 pg 26.0-3 4.0 Not Available [facility] [address] [place], [id number] 04/08/2020 12:51:17 04/07/20 20 04/07/2020 CBC w/ auto diff mean corpuscular hemoglobin concentratio n 32.2 g/dL 30.0-3 6.0 Not Available [facility] [address] [place], [id number] 04/08/2020 12:51:17 04/07/20 20 04/07/2020 CBC w/ auto diff red cell distribution width 11.9 % 11.5-1 4.5 Not Available [facility] [address], [facility] 04/08/2020 12:51:17 04/07/20 20 04/07/2020 CBC w/ auto diff platelets 209 thou/ uL 150-45 0 Not Available [facility] [address], [facility] 04/08/2020 12:51:17 04/07/20 20 04/07/2020 CBC w/ auto diff mean platelet volume 11.1 fL 9.4-12 .5 Not Available [facility] [address], [facility] 04/08/2020 12:51:17 04/07/20 20 04/07/2020 CBC w/ auto diff neutrophil, percentage 69.7 % Not Available [facility] [address] [place], [facility] 04/08/2020 12:51:17 04/07/20 20 04/07/2020 CBC w/ auto diff lymphocyte, percentage 24.6 % Not Available [facility] [place] [facility] [address] [place], [id number] 04/08/2020 12:51:17 04/07/20 20 04/07/2020 CBC w/ auto diff monocyte, percentage 4.4 % Not Available [facility] [place] [address] [place], [address] 04/08/2020 12:51:17 04/07/20 20 04/07/2020 CBC w/ auto diff eosinophil, percentage 0.9 % Not Available [facility] [address], [facility] 04/08/2020 12:51:17 04/07/20 20 04/07/2020 CBC w/ auto diff basophil, percentage 0.2 % Not Available [facility] [address], [facility] 04/08/2020 12:51:17 04/07/20 20 04/07/2020 CBC w/ auto diff neutrophil, absolute 5.88 thou/ uL 2.00-7 .50 Not Available [facility] [address] [place], [id number] 04/08/2020 12:51:17 04/07/20 20 04/07/2020 CBC w/ auto diff lymphocyte, absolute 2.08 thou/ uL 1.50-4 .50 Not Available [facility] [address], [facility] 04/08/2020 12:51:17 04/07/20 20 04/07/2020 CBC w/ auto diff monocyte, absolute 0.37 thou/ uL 0.20-1 .50 Not Available [facility] [address], [facility] 04/08/2020 12:51:17 04/07/20 20 04/07/2020 CBC w/ auto diff eosinophil, absolute 0.08 thou/ uL 0.00-0 .70 Not Available [facility] [address], [facility] 04/08/2020 12:51:17 04/07/20 20 04/07/2020 CBC w/ auto diff basophil, absolute 0.02 thou/ uL 0.00-0 .20 Not Available [facility] [address], [facility] 04/08/2020 12:51:17 04/07/2004/07/2020 CBC w/ auto diff NRBC, absolute 0.00 thou/ uL 0.00-0 .02 Not Available [facility] [address], [facility] 04/08/2020 12:51:17 04/07/2004/07/2020 CBC w/ auto diff NRBC, percentage 0.0 % <5.0 Not Available [facility] [address], [facility] 04/08/2020 12:51:17 04/07/20 20 04/07/2020 CBC w/ auto diff Ig, absolute 0.02 thou/ uL 0.00-0 .10 Not Available [facility] [address], [facility] 04/08/2020 12:51:17 04/07/20 20 04/07/2020 CBC w/ auto diff Ig, percentage 0.2 thou/ uL Not Available [facility] [address] [place], [id number] 04/08/2020 12:51:17 04/07/20 20 04/07/2020 ABO group , blood bb patient history check No previo us WHCT histor y. Not Available [facility] [address] [place] [address], [id number] 04/08/2020 12:51:22 04/07/20 20 04/07/2020 ABO group , blood blood type interpretati on O Not Available [facility] [address] [place] [address], [id number] 04/08/2020 12:51:22 04/07/20 20 04/07/2020 Rh only bb patient history check No previo us WHCT histor y. Not Available [facility] [address] [place] [address], [id number] 04/08/2020 12:51:22 04/07/20 20 04/07/2020 Rh only Rh interpretati on Positi ve Not Available [facility] [address] [place] [address], [address] 04/08/2020 12:51:22 04/07/20 20 04/07/2020 HBsAg (hepa titis B surfa ce Ag), confi rmati on, serum hepatitis B surface antigen Non-Re active non-re active Not Available [facility] [address] [place] [address], [address] 04/08/2020 12:51:25 04/07/20 20 04/07/2020 HIV 1+2 AB + HIV 1 p24 Ag, quali tativ e immun oassa y, serum HIV 1/2 antigen Non-Re active non-re active Resul ts show no evide nce of infec tion by HIV 1/2. If clini jhonny indic ated, repea t CMIA or test by nucle ic acid ampli ficat ion. Not Available [facility] [address] [place], [address] 04/08/2020 12:51:25 04/07/20 20 04/07/2020 hepat itis C Ab, serum hepatitis C Ab reflex HCV PCR quant 0.06 Non-Re active S/co non-re active Not Available [facility] [address] [place], [address] 04/08/2020 12:51:26 04/07/20 20 04/07/2020 RPR (rapi d plasm a reagi n), serum T. pallidum Ab 0.04 Non-re active S/co non-re active Not Available [facility] [address] [place], [address] 04/08/2020 12:51:26 04/07/20 20 04/07/2020 antib patti scree n, serum or plasm a bb patient history check No previo us WHCT histor y. Not Available [facility] [address] [place], [address] 04/08/2020 15:28:36 04/07/20 20 04/07/2020 antib patti scree n, serum or plasm a antibody screen interpretati on Negati ve negati ve Not Available [facility] [address] [place], [address] 04/08/2020 15:28:36 04/07/20 20 04/07/2020 US, obste tric, trans vagin al RAD rberke Not Available 21:27:11 Result Notes None recorded. 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 [facility]eds [facility] 7 11:57:40 Abnormal cervical Papanico laou smear 526841212 Active Cleopatra fontaine, [facility] 6 09:29:54 Perineal irritati on 993018156 Active Cleopatra Angeles null, [facility] 6 09:29:54 Pregnanc y 43196231 Completed 201510/16/2016 Bertha Sanchez null, [facility] 1 12:10:09 Pregnanc y 18080976 Completed 201904/29/2020 Bertha Sanchez null, [facility] 1 12:10:09 Problem Notes None recorded. Procedures Surgical History Date Name Laterality Status Provider Name and Address Organization Details Recorded Time 04/07/2020 P4P-OB (0500F) completed TIBURCIO DEWEY CNM [address] [facility], [address] [place] [address], [phone], [facility] 04/07/2020 17:08:03 03/07/2019 Date of Last Pap Smear completed Brandi Jordan [facility] 03/15/2019 09:00:51 10/16/2016 [id number] (0503F) completed ANTHONY URRUTIA MD [address], [address] [place] [address], [phone], [facility] 10/16/2016 14:00:08 09/04/2016 Non-Stress Test completed TIBURCIO DEWEY CNM [address], [address] [place] [address], [address], [facility] 09/04/2016 12:15:42 07/07/2016 Non-Stress Test completed TIBURCIO DEWEY CNM [address], [address] [place] [address], [phone], [facility] 07/07/2016 11:11:24 01/28/2016 P4P-OB (0500F) completed TIBURCIO DEWEY CNM [address], [address] [place] [address], [address], [facility] 01/30/2016 09:02:48 01/04/2016 [id number] completed TIBURCIO DEWEY CNM [address], [address], [place], [address], [facility] - [facility] 01/04/2016 10:40:08 01/04/2016 [id number] completed TIBURCIO DEWEY CNM [address], [address], [place], [address], [facility] - [facility] 01/04/2016 10:40:08 01/04/2016 [id number] completed TIBURCIO DEWEY CNM [address], [address], [place], [address], [facility] 01/04/2016 10:40:08 01/04/2016 [id number] completed TIBURCIO DEWEY CNM [address], [address], [place], [address], [facility] - [facility] 01/04/2016 10:40:08 01/04/2016 [id number] completed TIBURCIO DEWEY CNM [address], [address], [place], [address], [facility] - [facility] 01/04/2016 10:40:08 12/10/2014 [id number] completed Zenia Guido [facility] 12/10/2014 10:45:41 12/10/2014 [id number] completed Zenia Dinjagrutiu [facility] 12/10/2014 10:45:41 12/10/2014 [id number] completed Zenia Guido ID - [facility] 12/10/2014 10:45:41 12/10/2014 [id number] completed Zenia Mullinsu [facility] 12/10/2014 10:45:41 12/10/2014 [id number] completed Zenia Guido [facility] 12/10/2014 10:45:41 12/10/2014 [id number] A completed Zenia Dindavid [facility] 12/10/2014 10:45:41 12/30/2013 LEEP completed Zenia Guido [facility] 12/10/2014 10:39:35 Imaging Results None recorded. Procedure Notes None recorded. Medical Equipment None Reported. Allergies Allergen ID Allergen Name Allergen Category Reaction Reaction Severity Criticality Documentation Date Start Date Code Code System Note Provider Name and Address Organization Details Recorded Time 270800 No known allergy (situatio n) Not available Not available Not available Not available 09/29/20142012 66189 6003 SNOMED Karen Misbah [facility], [facility] 7 11:43:16 No known drug allergies Medications Name Sig Start Date Stop Date Status Note LastModified by Organization Details LastModified Time betametha sone valerate 0.1 % topical ointment APPLY APEA SIZED AMOUNT THE AFFECTED AREA(S) BY TOPICAL ROUTE 3 X DAILY 03/16 completed Not Available Not Available Not Available fluconazo le 150 mg tablet take 1 tablet tiw for 2 weeks 03/16 completed Not Available Not Available Not Available doxycycli ne hyclate 50 mg capsule TAKE 1 CAPSULE BY ORAL ROUTE EVERY 12 HOURS 12/09 completed PRESCRIB ED ELSEWHER E Not Available Not Available Not Available terconazo le 0.8 % vaginal cream Insert 1 applicat orful every day by vaginal route for 3 days. 01/08 completed Not Available Not Available Not Available nystatin- triamcino lone 100,000 unit/gram -0.1 % topical ointment APPLY BY TOPICAL ROUTE 2 TIMES EVERY DAY TO THE AFFECTED AREA(S) 01/16 completed Not Available Not Available Not Available oxycodone -acetamin ophen 5 mg-325 mg tablet active Not Available Not Available Not Available famotidin e 20 mg tablet 01/16 completed Not Available Not Available Not Available lorazepam 0.5 mg tablet 03/16 completed Not Available Not Available Not Available amitripty line 10 mg tablet Take 1 tablet every day by oral route. 01/16 completed Not Available Not Available Not Available fluoxetin e 20 mg tablet 03/16 completed Not Available Not Available Not Available triamcino lone acetonide 0.1 % topical ointment APPLY A THIN LAYER TO THE AFFECTED AREAS 2 TIMES PER WEEK active Not Available Not Available No t Available clotrimaz ole-betam ethasone 1 %-0.05 % topical cream APPLY TO THE AFFECTED AND SURROUND ING AREAS OF SKIN BY TOPICAL ROUTE 2 TIMES PER DAY IN THE MORNING AND EVENING FOR 2 WEEKS 2014 active Not Available Not Available Not Avai lable Wellbutri n 75 mg tablet TAKE 1 TABLET BY ORAL ROUTE 3 TIMES EVERY DAY 02/25 completed PRESCRIB ED ELSEWHER E Not Available Not Available Not Available clindamyc in 2 % vaginal cream Insert 1 applicat orful every day by vaginal route. 03/07 completed Not Available Not Available Not Available codeine 10 mg-guaife nesin 100 mg/5 mL oral liquid 03/07 completed Not Available Not Available Not Available zolpidem 5 mg tablet 03/16 completed Not Available Not Available Not Available norethind karly (contrace ptive) 0.35 mg tablet TAKE ONE TABLET BY MOUTH ONCE DAILY 01/16 completed Not Available Not Available Not Available hydrocort isone 2.5 % topical ointment APPLY A PEA SIZED AMOUNT TO THE AFFECTED AREA(S) BY TOPICAL ROUTE 3 TIMES PER DAY 03/16 completed Not Available Not Available Not Available hydroxyzi ne HCl 10 mg tablet 03/16 completed Not Available Not Available Not Available metoclopr amide 10 mg tablet 01/16 completed Not Available Not Available Not Available escitalop rebecca 10 mg tablet take one pill PO daily active Not Available Not Available No t Available Tri-Sprin dylon (28) 0.18 mg(7)/0.2 15 mg(7)/0.2 5 mg(7)-0.0 35 mg tablet TAKE 1 TABLET BY ORAL ROUTE EVERY DAY active Not Available Not Available No t Available escitalop rebecca 5 mg tablet TAKE 1 TABLET BY ORAL ROUTE EVERY DAY active Not Available Not Available No t Available 01/08 completed Not Available Not Available Not Available Larissia 0.1 mg-20 mcg tablet TAKE 1 TABLET BY MOUTH EVERY DAY 03/16 completed Not Available Not Available Not Available Vitals Date Recorded Body height Systolic And Diastolic Provider Name and Address Organization Details Last Updated DateTime 01/08/2017 172.72 cm 104/74 mm[Hg] Dolores Woodall [facility] 01/08/2017 10:52:45 Date Recorded Body height Systolic And Diastolic Provider Name and Address Organization Details Last Updated DateTime 01/16/2018 172.72 cm 106/68 mm[Hg] Anita Escalante [facility] 01/16/2018 13:40:43 Date Recorded Body height Systolic And Diastolic Provider Name and Address Organization Details Last Updated DateTime 03/07/2019 172.72 cm 118/72 mm[Hg] Bertha Blood [facility] 03/07/2019 16:25:33 Date Recorded Body weight Systolic And Diastolic Provider Name and Address Organization Details Last Updated DateTime 04/07/2020 33655.92737 g 118/76 mm[Hg] Charla Valladares [facility] 04/07/2020 15:27:11 Social History Question Answer Notes LastModified by Organizat ion Details LastModified Time Tobacco Smoking Status Never Smoker Kimberley fontaine [facility] 12/10/2014 09:21:22 Is Blood Transfusion Acceptable In An Emergency? Yes [email or web address] Information not available 01/16/2018 Concerns About Meeting Basic Needs (food, Housing, Heat, Etc)? No [email or web address] Information not available 03/07/2019 Do You Reside In Or Have You Traveled To An Area Where Ebola Virus Transmission Is Active? No [email or web address] Information not available 01/16/2018 Have There Been Any Changes To Your Family Or Social Situation? No [email or web address] Information no t available 01/16/2018 Do You Have Any Children? Yes [email or web address] Information not available 01/16/2018 Does Your Partner Physically Hurt You Or Threaten To Hurt You? No [email or web address] Information not available 01/16/2018 Has Your Partner Forced You To Have Sex Or Perform Sex Acts When You Did Not Want To? No [email or web address] Information not available 01/16/2018 Does Your Partner Insult, Scream At Or Talk Down To You? No [email or web address] Information not available 01/16/2018 Does Your Partner Control You Or Any Part Of Your Life? No [email or web address] Information not available 01/16/2018 Are You Afraid Of Your Partner? No Information not available 01/16/2018 Drug Use? No [email or web address] Information no t available 08/12/2015 Do You Feel Safe At Home? Yes [email or web address] Information not available 01/16/2018 What Was The Date Of Your Most Recent Tobacco Screening? 03/16/2020 [email or web address] Information not available 03/16/2020 How Many Children Do You Have? 1 [email or web address] Information not available 01/16/2018 Do You Use Protection During Sex? No Information not available 12/10/2014 General Stress Level High [email or web address] Information not available 01/16/2018 Have You Recently Traveled Abroad? No [email or web address] Information not available 03/16/2020 Do You Have Symptoms Associated With Zika Virus (fever, Rash, Joint Pain, Or Conjunctivitis)? No [email or web address] Information not available 01/16/2018 Have You Recently (within The Last 12 Weeks, Or During A Current ) Traveled To Or Lived In A Zika-affected Area? No [email or web address] Information not available 01/16/2018 Sex: Unknown Functional Status Question Answer Note LastModified by Organizat ion Details LastModified Time What is your level of alcohol consumption? Occasional [email or web address] Information not available 01/08/2017 What is your exercise level? Moderate Information not available 12/10/2014 Mental Status Question Answer Note LastModified by Organization D etails LastModified Time Do you have difficulty concentrating, remembering or making decisions? No [email or web address] Information no t available 01/16/2018 Family History Relationship Description Onset Age of this Age Resolved Age Notes LastModified by Organization Details LastModified Time Maternal Aunt Malignant neoplasm of breast [email or web address] Not available 2015 09:31:25 Medical History Condition Response Other N Kidney Stones N *No Diseases or Conditions N Blood clots N Breast Cancer N Colon cancer N Benign breast disease N Depression Y Lung Disease N Defects or Inherited Disease N Anesthesia Complications N Neurological Disorder N Headaches/Migraines N Have you ever been on isolation N Anxiety Disorder Y HSV N Arthritis N Infertility N Interstitial Cystitis N Acid Reflux (GERD) N Cancer Y Stroke N Endometriosis N Fibromyalgia N Spina Bifida N HIV N Heart Problems N Sexual Dysfunction N Hypogonadism N Autoimmune disorder N Kidney or Bladder Problems N Thyroid Problems N GI Problems N Eating Disorder N Anemia N Multiple Sclerosis N Psychiatric Illness N Ovarian Cancer N Diabetes N Blood Transfusions N Bladder disease N History of MRSA N None reported by patient N Abnormal Uterine Bleeding N Hyperlipidemia N BrCa positive N Diverticulitis N Abuse/Domestic Violence N Asthma N Bladder Cancer N Hepatitis N Hypertension N Osteoporosis N Thrombophilias N Gynecological History Statement/Question Response Abnormal Pap Y Flow Moderate Breast Biopsy N Date of LMP 01/28/2020 Breast Ultrasound N IPV Screen Done 03/16/2020 Leep Y Duration of Flow (days) 5 Current Control Method None Frequency of Cycle (Q days) 27 Sexually Active? Y Sexual Problems? N Date of Last Pap Smear 03/07/2019 Last HPV Result Negative Obstetrics History GPAL:G 5 P 1 0 2 1 Type Value Full Term 1 Spontaneous 2 Living 1 Total 5 Immunizations Vaccine Type Date Status Note Provider Nam e and Address Organization Details Recorded Time Tdap 7 completed Not Available [facility] 05/10/2019 02:18:55 Influenza, split virus, quadrivalent, preservative 0 completed TIBURCIO DEWEY CNM [address] [place] [address], [address] Floor, [place], [address], [place] [facility] 04/07/2020 16:02:18 Past Encounters Encounter ID Performer Location Encounter Start Date Encounter Closed Date Diagnosis/Indication Diagnosis SNOMED-CT Code Diagnosis ICD10 Code Diagnosis IMO Codes Diagnosis Note [id number] [facility] [address] [place] [address] 06/17/2012 00:00:00 [id number] [facility] [address] [place] [address] 06/19/2012 00:00:00 [id number] [facility] [address] [place] [address] 07/23/2012 00:00:00 [id number] [facility] [address] [place] [address] 02/25/2013 00:00:00 [id number] [facility] [address] [place] [address] 12/09/2013 00:00:00 [id number] [facility] [address] [place] [address] 12/18/2013 00:00:00 [id number] [facility] [address] [place] [address] 12/25/2013 00:00:00 [id number] [facility] [address] [place] [address] 01/08/2014 00:00:00 [id number] [facility] [address] [place] [address] 05/07/2014 00:00:00 [id number] [facility] [address] [place] [address] 05/21/2014 00:00:00 [id number] ZENIA GUIDO MD [facility] [address] [place] [address] 12/10/2014 08:53:37 12/10/2014 09:43:10 Gynecologic examination [id number] PAP/HPV repeated today. Will wait for results and make further plan then. Perineal irritation [id number] ZENIA GUIDO MD [facility] [address] [place] [address] 07/14/2015 14:11:59 07/14/2015 14:53:02 Abnormal cervical Papanicolaou smear [id number] R87.619 PAP/HPV repeated today. Stopped the BC pills. Continues to take lexapro, in process of establishi a PCP [id number] TIBURCIO DEWEY CNM [facility] [place] [address] 08/12/2015 12:52:14 08/12/2015 14:13:31 Threatened miscarriage 39615803 O20.0 Reviewed US findings with pt. Discussed SAB vs early preg vs ectopic. Pt is RH positive. Will get Beta HCG today and repeat on Sunday. Understand s Ectopic precaution s and will call if any one sided pain, major hemorrhage or fever. Taking PNV, will continue. On Lexapro. Will continue and revist that on Sunday depending on results. test positive [id number] Z32.01 Miscarriage 85269535 O03 .9 [id number] TIBURCIO DEWEY CNM SHE[address] [place] [address] 01/04/2016 09:26:16 01/04/2016 11:18:00 detection examination 94100022 Z32.01 Pt thrilled with . 48yo had reversal of vasectomy. No cats, had chicken pox as child. Gynecologi c examination 66635821 Z01.411 Z01.419 History of abnormal cervical Papanicolaou smear 319397436 Z87.42 LEEP done in 2012. Has had 2 HPV neg, WNL Pap this past year. Due in 07/07 Non-infect etta leukorrhea 116039312 N89.8 Reassured normal microscopy . Venereal d isease screening 561639881 Z11.3 [id number] TIBURCIO DEWEY CNM [address] [place] [address] 01/28/2016 15:11:53 01/28/2016 16:25:56 Routine care 318174058 Z34.81 4 week OB, wants genetic testing, sent info to [facility]. Gestation period, 8 weeks 90881218 Z3A.08 Discussed Nutrition in , Dos and Don'ts in , Subsequent testing and expectatio ns. Understand s no smoking, drinking, street drugs, or other medication s without approval. Reviewed activity and common s/s of early . 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 Will watch. Danger s/s reviewed and knows when to call. [id number] TIBURCIO DEWEY CNM SHE[address],[facility] [address] [place] [address] 03/07/2016 11:09:11 03/07/2016 11:32:57 Gestation period, 14 weeks 72732814 Z3A.14 Routine an tenatal care 227298148 Z34.81 4 week OB, genetic testing WNL, will get Quad screen when comes in for next US for cx check. Cervical incompetence 17 636180 O34.32 Hx of LEEP. Will get US q 2 weeks. Candidiasis of vagina 72 354593 B37.3 Discussed findings, given ERX [id number] TIBURCIO DEWEY CNM [address] [place] [address] 03/27/2016 12:38:35 03/27/2016 14:53:38 Gestation period, 17 weeks 61279206 Z3A.17 Cervical incompetence 17 144015 O34.32 Hx of LEEP. Will get US q 2 weeks. Reassured no change. Routine an tenatal care 417850683 Z34.81 4 week OB, got Quad screen done today. [id number] TIBURCIO DEWEY CNM [address] [place] [address] 05/11/2016 12:12:02 05/11/2016 12:46:21 Cervical incompetence 07595551 O34.32 Hx of LEEP. Will get US q 2 weeks. Reassured no change. Gestation period, 23 weeks 49809903 Z3A.23 Routine an tenatal care 867866969 Z34.81 4 week OB, bloodwork and OB visit in 4 weeks. [id number] TIUBRCIO DEWEY CNM [address] [place] [address] 06/07/2016 09:56:27 06/07/2016 10:51:00 Routine care 571431236 Z34.82 Gestation period, 27 weeks 99973682 Z3A.27 Pruritus of vulva 206821 00 L29.2 Reviewed Increased WBC finding with pt, no yeast seen. Will send culture and will tx externally itching. [id number] ANTHONY URRUTIA MD SHE[address] [address] 06/26/2016 14:09:04 06/26/2016 15:02:44 Routine care 110669296 Z34.03 Gestation period, 30 weeks 88399726 Z3A.30 Thrombocyt openic disorder 457564798 D69.6 Administra tion of diphtheria, pertussis, and tetanus vaccine 075267357 Z23 Patient was advised to have a vaccinatio n. risks and benefits of the specific vaccine were reviewed. Patient denies history of significan t reaction to previous vaccinatio ns. denies egg allergy or history of Guillain Temple syndrome. Patient informed that most people will get a little sore in the area of injection for a few days. She was instructed to call for any concerning side effects from the vaccine such as high fever or hives or significan t induration or erythema. Vaccine given in L arm without difficulty . [id number] TIBURCIO DEWEY CNM [address] [place] [address] 07/07/2016 08:53:04 07/07/2016 11:01:31 Gestation period, 31 weeks 31384703 Z3A.31 Premature/false labor 28 9883052 O60.03 Pt has had a back ache since Sunday but not gotten any worse. Yesterday was better but this morning it has returned. Pt has no cramping or on and off again tightening . Pt saw a tinge of pink with a mucousy d/c looked like a little worm when wiped x 2 yesterday. No pink mucous today. FFN sent, NST ordered. PTL s/s reviewed. NST showed q 10 min UCs, ADAN ordered d/t occasional variables. WNL, and sent for further observatio n, RDB aware. Leukorrhea 345312372 N89 .8 No yeast seen. [id number] ANTHONY URRUTIA MD SHE[address] [place] [address] 07/24/2016 14:23:46 07/24/2016 14:58:19 Routine care 677783324 Z34.03 Gestation period, 34 weeks 63101807 Z3A.34 Platelet disorder 884196 05 D69.1 Thrombocyt openic disorder 597088987 D69.6 repeat in 3 weeks. Patient aware. [id number] ANTHONY URRUTIA MD SHE[address] [place] [address] 08/07/2016 11:28:30 08/07/2016 12:44:29 Routine care 110652534 Z34.03 Gestation period, 36 weeks 90417759 Z3A.36 Carolcoughs 95224080 R06.6 [id number] ANTHONY URRUTIA MD SHE[address] [place] [address] 08/14/2016 10:48:09 08/14/2016 12:04:06 Routine care 080121061 Z34.03 Gestation period, 37 weeks 92878918 Z3A.37 [id number] TRAV OAKES, CNM [address] [facility] [place] [address] 08/21/2016 13:49:25 08/21/2016 15:06:52 Routine care 111456679 Z34.83 Gestation period, 38 weeks 52019556 Z3A.38 [id number] ANTHONY URRUTIA MD SHE[address] [place] [address] 08/28/2016 11:51:30 08/28/2016 12:24:25 Routine care 965760166 Z34.83 Gestation period, 39 weeks 27831502 Z3A.39 [id number] TIBURCIO DEWEY CNM [address] [place] [address] 09/04/2016 10:07:26 09/04/2016 12:20:45 Post-term 47177256 O48.0 FM kick counts, NST on . Induction on 09/11, awaiting confirmati on by [facility]. RDB aware. Gestation period, 40 weeks 58973043 Z3A.40 [id number] TIBURCIO DEWEY CNM [address] [place] [address] 09/04/2016 10:02:37 09/04/2016 12:21:06 [id number] ANTHONY URRUTIA MD SHE[address] [place] [address] 10/16/2016 11:44:11 10/16/2016 12:37:36 care 491887236 Z39.2 doing well. Initial pr escription of oral contraception 781533015 Z30.011 risks and benefits reviewed. F/u in 3 months for annual and f/u OCP check. [id number] TIBURCIO DEWEY CNM [address] [place] [address] 01/08/2017 10:18:46 01/08/2017 11:35:59 Gynecologic examination 06470523 Z01.419 Surveillan ce of oral contraception 338789756 Z30.41 Pt stopped breastfeed ing. Pt opted for combo OCPs for now. Has used in past. No contraindi cations. SE and warning signs of ACHES reviewed. Will call if any problems. Will start after finishing POP pack. Pruritus of vulva 993310 00 L29.2 Not presently but does happen periodical ly. [id number] TIBURCIO DEWEY CNM [address] [place] [address] 01/16/2018 13:22:46 01/16/2018 14:24:00 Gynecologic examination 11356631 Z01.411 Reviewed diet and exercise no hereditary cancer risk Contraception care 32044 5001 Z30.41 Wishes to continue. Happy with OCP. No problems, good user. Pt is non-smoker , no warning signs. Reviewed ACHES and contraindi cations. Pruritus o f female genital organs 52645490 L29.3 ? LSC vs LS. Will use steroid x 2 weeks daily then BIW. F/U in 1 mos Vaginal di scharge problem 369194682 N89.9 Discussed findings with pt. Given leukocytes x last few years without any other findings will tx with 7d of Cleocin. Discussed antiinflam matory and antibacter ial properties . Will relook at 1 mos visit. Will take anti-yeast prophylaxi s. 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 History of chicken pox. Started on PNV. Will schedule for IOB with US for dating in 2 weeks. No cold cuts, no hot tubs/sauna s, no ETOH/cigs/ drugs. Info given on early preg/meds/ exercise/g enetic screening. Pt thrilled with . May consider transferri ng [place] lives in [place]. Will think about it. 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 will use 1 - 2 x week. [id number] TIBURCIO DEWEY CNM [address] [facility] [place] [address] 04/07/2020 14:33:11 04/07/2020 16:04:56 Routine care 759873934 Z34.81 Hx of Leep procedure, may need US q 2 week after 14 - 16 weeks. Will check at HR visit. Discussed Nutrition in , Dos and Don'ts in , Subsequent testing and expectatio ns. Understand s no smoking, drinking, street drugs, or other medication s without approval. Reviewed activity and common s/s of early . Unsure re Q herit but does want Q will get done in 2 weeks. Gestation period, 10 weeks 75366203 Z3A.10 Influenza vaccine needed 7364836336 106 Z23 Tolerated well. Discussed possible side effect of tenderness at injection site and sore arm x 1 - 2 days. Will call if fever, allergic reaction. Health Concerns Section Related Observation LastModified by Organization Detai ls LastModified Time None Recorded Concern Status LastModified by Organization Details LastModified Time None Recorded Advance Directives Directive None Recorded Payers Insurance Date Sequence Insurance Name Policy Number Policy Zhu Covered Member ID Zhu Member ID Guarantor Name 04/29/2020 1 [facility] [id number] Gabby Thurston [id number] Gabby Thurston Notes Date Note Type Note Provider Name and Address Organization Details Recorded Time 7 text/html [facility] Annual GYNReported by PatientHistoryFor history, patient reportsno gynecologic complaints.Genitourinary symptomsFor menstrual cycle, patient reportsnormal menses. For urinary symptoms, patient reportsno hematuriaandno incontinence. For vulva, patient reportsno genital lesion. For vagina, patient reportsnormal vaginal discharge.Breast symptomsFor breast, patient reportsno breast pain,no breast lump, andno nipple discharge.ContraceptionFo r current contraception, patient reportssatisfied with current contraception,monogamous relationship, andoral contraceptives(declines std testing and flu vaccine).Endocrine symptomsFor sexual activity, patient reportsno sexual complaints,no pain during intercourse,normal libido, andsexually active no __ (not currently).Psychological symptomsFor psychological symptoms, patient reportsno depression,no anxiety, andno pmdd.Preventative measuresFor preventive measures, patient reportsencourage self breast examination,encourage regular exercise, andfollowed with pap smear and high risk hpv typing every 3 years. TIBURCIO DEWEY CNM [address] [place] [address], [address], [place], [address], [place] [facility] 01/08/2017 17:28:43 8 text/html [facility] Annual GYNReported by PatientHistoryFor history, patient reportsno gynecologic complaints.Genitourinary symptomsFor vagina, patient reportsfoul-smelling,whit e, andvaginal itching. For menstrual cycle, patient reportsnormal menses. For urinary symptoms, patient reportsno hematuriaandno incontinence. For vulva, patient reportsno genital lesion.Breast symptomsFor breast, patient reportsno breast pain,no breast lump, andno nipple discharge.ContraceptionFo r current contraception, patient reportssatisfied with current contraception,monogamous relationship, andoral contraceptives(declines std testing and flu vaccine).Endocrine symptomsFor sexual activity, patient reportsno sexual complaints,no pain during intercourse,normal libido, andsexually active yes __.Psychological symptomsFor psychological symptoms, patient reportsno depression,no anxiety, andno pmdd.Preventative measuresFor preventive measures, patient reportsencourage self breast examination,encourage regular exercise, andfollowed with pap smear and high risk hpv typing every 3 years. [facility] Vaginal DischargeReported by PatientHPIFor associated symptoms, patient reportsvaginal itchingbut reportsno vaginal burning,no swelling/redness,no fever/chills,no diarrhea,no abdominal pain,no pelvic pain,no vaginal pain,no pain during urination,no pain during intercourse,no vaginal lump,no genital lesion,no sexually transmitted disease, andno fever. For location, patient reportsvagina. For quality, patient reportswhiteandfoul-smell ing. For severity, patient reportsmoderate. For duration, patient reports___ months(varies from month to month). For onset/timing, patient reportsdaily. For context, patient reportstaking oral contraceptives,condom use: no, andhistory of recurrent vaginal infections. For modifying factors, patient reportsnothing gives relief. TIBURCIO DEWEY CNM [address] [facility], [address], [place], [address], [facility] 01/16/2018 16:22:49 9 text/html [facility] Annual GYNReported by PatientGenitourinary symptomsFor menstrual cycle, patient reportsnormal menses. For urinary symptoms, patient reportsno hematuriaandno incontinence. For vulva, patient reportsno genital lesion. For vagina, patient reportsnormal vaginal discharge.Breast symptomsFor breast, patient reportsno breast pain,no breast lump, andno nipple discharge.ContraceptionFo r current contraception, (declines std testing and flu vaccine).Endocrine symptomsFor sexual activity, patient reportsno sexual complaints,no pain during intercourse, andnormal libido. For menopausal symptoms, patient reportsno menopausal symptomsandnormal vaginal lubrication.Psychological symptomsFor psychological symptoms, patient reportsno depression,no anxiety, andno pmdd.Preventative measuresFor preventive measures, patient reportsencourage self breast examination,encourage regular exercise,encourage no tobacco use, andfollowed with pap smear and high risk hpv typing every 3 years. Patient is here today for her annual visit. Last annual was on 01/16/18 Last pap was performed on 07/14/15 results were NEG X2. Pap preformed at todays visit. Pt c/o of itching near vulva and anal area. Of note patient is status post melanoma of the right Iris surgery in 2002 Maternal aunt with malignant breast cancer in her forties. NOEL GONZALEZ APRN [address] [facility], [address] [facility], [place], [address], [facility] 03/07/2019 17:26:15 0 text/html [facility] AmenorrheaReported by PatientHPIFor associated symptoms, patient reportsbreast tendernessandnausea. For onset/timing, patient reportsno menses for 1 month. For quality, patient reportsnormal flow. For severity, patient reportsmild. For context, patient reportspositive test. [facility] Annual GYNReported by PatientHistoryFor history, patient reportsactively trying to conceive.Genitourinary symptomsFor menstrual cycle, patient reportsmissed most recent period. For urinary symptoms, patient reportsno hematuriaandno incontinence. For vulva, patient reportsno genital lesion.Breast symptomsFor breast, patient reportsno breast pain,no breast lump, andno nipple discharge.ContraceptionFo r current contraception, patient reportsmonogamous relationshipandbirth control not practiced(declines std testing and flu vaccine).Endocrine symptomsFor sexual activity, patient reportsno sexual complaints,no pain during intercourse, andnormal libido. For menopausal symptoms, patient reportsno menopausal symptomsandnormal vaginal lubrication.Psychological symptomsFor psychological symptoms, patient reportsanxiety (stopped all medication as trying to get )but reportsno depression.Preventative measuresFor preventive measures, patient reportsencourage self breast examination,encourage regular exercise,encourage no tobacco use,followed with yearly pap smears,followed with pap smear and high risk hpv typing every 3 years, andhistory of abnormal pap smear/cervical dysplasia. LMP 01/28/20, EGA 6w6d, EDC TIBURCIO DEWEY, RUPAL [address] [facility], [address] Floor, [place], [address], [facility] - [facility] 03/26/2020 12:12:26 0 text/html [facility] AmenorrheaReported by PatientHPIFor associated symptoms, patient reportsbreast tendernessandnausea. For onset/timing, patient reportsno menses for 1 month. For quality, patient reportsnormal flow. For severity, patient reportsmild. For context, patient reportspositive test. [facility] Annual GYNReported by PatientHistoryFor history, patient reportsactively trying to conceive.Genitourinary symptomsFor menstrual cycle, patient reportsmissed most recent period. For urinary symptoms, patient reportsno hematuriaandno incontinence. For vulva, patient reportsno genital lesion.Breast symptomsFor breast, patient reportsno breast pain,no breast lump, andno nipple discharge.ContraceptionFo r current contraception, patient reportsmonogamous relationshipandbirth control not practiced(declines std testing and flu vaccine).Endocrine symptomsFor sexual activity, patient reportsno sexual complaints,no pain during intercourse, andnormal libido. For menopausal symptoms, patient reportsno menopausal symptomsandnormal vaginal lubrication.Psychological symptomsFor psychological symptoms, patient reportsanxiety (stopped all medication as trying to get )but reportsno depression.Preventative measuresFor preventive measures, patient reportsencourage self breast examination,encourage regular exercise,encourage no tobacco use,followed with yearly pap smears,followed with pap smear and high risk hpv typing every 3 years, andhistory of abnormal pap smear/cervical dysplasia. LMP 01/28/20, EDC TIBURCIO DEWEY CNM [address] [facility], [address], [place], [address], [facility] 04/07/2020 17:08:55 OBGyn Episode Ob Episode Information Episode Created Date Number of Fetuses Patient Bloodtype Patient rh Status Prepregnancy Weight lbs Domestic Partner Domestic Partner Phone Father Name Warehouse Packaging Supervisor Status 04/07/20 20 1 O Positive Shiva Shepherd CLOSED Fetus Data First Name Last Name Admitted to NICU Weight (g) Sex Living Outcome Pediatric Complications Fetus ID Race Codes Race Delivery Type [id number] Raghav Calculation Initial Raghav Date Initial Exam Date Initial Exam Provider Initial Ultrasound Date Last Menstrual Period Date Ultra Sound Weeks Gestation 11/03/2020 04/07/2020 [email or web address] 04/07/2020 01/28/2020 10 Eighteen To Twenty Week Raghav Update Ultra Sound Date Fundal Height At Umbil Quickening Date Ultra Sound Latest Weeks Gestation Final Raghav Confirmed By Final Raghav Confirmed Date Final Raghav Date Ultra Sound Latest Days Gestation 0 04/07/2020 11/04/19 21 0 Pre-todd Flowsheet Flowsheet Date 04/07/2020 Saldaña Score Blood Edema Fundus Height Fundus Units Glucose Ketones Leukocytes Nitrite Labor Signs Protein Cervic Dilation Cervic Effacement Cervic Station none 10 none neg Type Weight in lbs Pre/Post Dialysis Refused With clothes 176.560515763300 BP Diastolic BP Location Tested BP Systolic BP Type 76 118 sitting Fetus Heart Rate Present A 170 Fetus Movement Comments pt is here for iob with PMO. Pt denies any leakage of fluids, discharge or bleeding. Pt feels well is very happy happy with . Pt state she has been eating well drinking lots of fluids. Genetic testing discussed with pt she desires qnatal will order. IOB also ordered Flu vaccine given to pt today Toxicology done. Had leep but full term since then. Very excited. Reviewed dos and don'ts, given folder. 4 week visit. Knows to go for Qnatal in 2 weeks. Menstrual History Last Menstrual Date Menses Monthly On Bcp Conception Prior Menses Frequency Hcg Plus Date Menarche Onset Age 1001/28/2020 true Genetic Screening And Infection History Question Response Note Patient's Age Will Be 35 Yea rs Or Older At Estimated Date of Delivery true Thalassemia (Portuguese, Anguillan, Mediterranean, Or Background): MCV < 80 false Neural Tube Defect (Meningom yelocele, Spina Bifida, Or Anencephaly) false Congenital Heart Defect false Down Syndrome false Heladio-Sachs (eg, Druze, Cajun , Chilean-Micronesian) false Jeanette Disease false Sickle Cell Disease Or Trait () false Hemophilia Or Other Blood Disorders false Muscular Dystrophy false Cystic Fibrosis false Swisher's Chorea false Mental Retardation/Autism true Partne rs sister has a mentality of a 14 y/o she is about 50 years old (disability) If Yes, Was Person Tested Fo r Fragile X? false Other Inherited Genetic Or C hromosomal Disorder false Maternal Metabolic Disorder (eg, Type 1 Diabetes, PKU) false MOB father type 1 diabetes Patient Or Baby's Father Had A Child With Defects Not Listed Above false Recurrent Loss, Or A Stillbirth true 2x miscarriage Medications (including Suppl ements, Vitamins, Herbs, OTC Drugs), Illicit/Recreational Drugs, Alcohol true PNV If Yes, Agent(s) And Strength/Dosage false Any Other Genetic History false Live With Someone With TB Or Exposed To TB false Patient Or Partner Has Histo ry Of Genital Herpes false Rash Or Viral Illness Since Last Menstrual Period false History Of STD, Gonorrhea, C hlamydia, HPV, Syphilis true HPV Other Infection History false Familial Dysautonomia (Ashke nazi Druze) false Spinal Muscular Atrophy false Parkinson Disease false History of HIV false History of Hepatitis false Prior GBS-infected child false Delivery Information Delivery Date Delivery Type Labor Anesthesia Weeks Gestation Incision Type Labor Labor Length Hrs Delivered By Post Complications Tubal Sterilization Discharge Date Comments Discharge Information Feeding Method Contraceptive Method Maternal HG B and HCT Levels Ob Episode Information Episode Created Date Number of Fetuses Patient Bloodtype Patient rh Status Prepregnancy Weight lbs Domestic Partner Domestic Partner Phone Father Name Warehouse Packaging Supervisor Status 01/28/20 16 1 O Positive Shiva Shepherd CLOSED Fetus Data First Name Last Name Admitted to NICU Weight (g) Sex Living Outcome Pediatric Complications Fetus ID Race Codes Race Delivery Type Cris 3685.43 5 F Full Term [id number] Vaginal Delivery Problems Problem Notes Low Platelet count. repeated at 38 weeks. Remains slightly low at 138. Will repeat in labor and PP. CMP needs to be repeated PP for slightly low total protein and albumin level. If persists, consider serum protein electrophoresis per RDB Problem Name Start Date End Date Resolution Snomed Code Not e History of abnormal cervical Papanicolaou smear [id number] LEEP procedure done. Needs cx checks. 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 Treated and doi ng fine Raghav Calculation Initial Raghav Date Initial Exam Date Initial Exam Provider Initial Ultrasound Date Last Menstrual Period Date Ultra Sound Weeks Gestation 09/02/2016 01/28/2016 01/28/2016 11/27/2015 0 Eighteen To Twenty Week Raghav Update Ultra Sound Date Fundal Height At Umbil Quickening Date Ultra Sound Latest Weeks Gestation Final Raghav Confirmed By Final Raghav Confirmed Date Final Raghav Date Ultra Sound Latest Days Gestation 0 09/03/19 17 0 Pre- Flowsheet Flowsheet Date 01/28/2016 Saldaña Score Blood Edema Fundus Height Fundus Units Glucose Ketones Leukocytes Nitrite Labor Signs Protein Cervic Dilation Cervic Effacement Cervic Station 9 none neg Type Weight in lbs Pre/Post Dialysis Refused 163.119976200814 BP Diastolic BP Location Tested BP Systolic BP Type 60 98 Fetus Heart Rate Present A 183 Fetus Movement A No Comments pt c.o nausea, no cats, had chicken pox as a baby. PT DOESNT WANT TO KNOW WEIGHT DURING . Flowsheet Date 03/07/2016 Saldaña Score Blood Edema Fundus Height Fundus Units Glucose Ketones Leukocytes Nitrite Labor Signs Protein Cervic Dilation Cervic Effacement Cervic Station none 13 none neg Type Weight in lbs Pre/Post Dialysis Refused 166.620993908668 BP Diastolic BP Location Tested BP Systolic BP Type 60 100 Fetus Heart Rate Present A 140 Fetus Movement Comments c/c ammonia smelling dischar ge and blood in stool advised stool softener. Integrated quad paper to pt. 1 -2 week cervical check u/s appt given. Yeast seen in [facility]. Terazol 3 ERX'd. Danger s/s reviewed. Doing well. Flowsheet Date 03/27/2016 Saldaña Score Blood Edema Fundus Height Fundus Units Glucose Ketones Leukocytes Nitrite Labor Signs Protein Cervic Dilation Cervic Effacement Cervic Station none 19 none neg Type Weight in lbs Pre/Post Dialysis Refused 172.469645739668 BP Diastolic BP Location Tested BP Systolic BP Type 70 106 sitting Fetus Heart Rate Present A 154 Fetus Movement Comments US Survey WNL, Baby gi rl, Cx=3.5cm. Reviewed with partner and pt. Happy. 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 Will watch. good body mechanics encouraged. 2 week US, 4 week US and OB visit. Did Quad today. Flowsheet Date 05/11/2016 Saldaña Score Blood Edema Fundus Height Fundus Units Glucose Ketones Leukocytes Nitrite Labor Signs Protein Cervic Dilation Cervic Effacement Cervic Station none 23 none neg Type Weight in lbs Pre/Post Dialysis Refused 176.678785877424 BP Diastolic BP Location Tested BP Systolic BP Type 70 106 sitting Fetus Heart Rate Present A 146 Fetus Movement A Yes Comments Pt starting to feel baby kic k and move more. Pt has discomfort on the left side. 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 ? Rd ligament pain. Pt to watch. No discomfort initiated with abd exam. Discussed watching and how to differentiate with danger s/s of PTL. Pt states any cramping she has goes away after takes a break and hydrates. US WNL, 2 week visit for US, 4 week visit for OB and will do blood work then. Glucola given. Flowsheet Date 06/07/2016 Saldaña Score Blood Edema Fundus Height Fundus Units Glucose Ketones Leukocytes Nitrite Labor Signs Protein Cervic Dilation Cervic Effacement Cervic Station none 28 none neg Type Weight in lbs Pre/Post Dialysis Refused 180.226366826662 BP Diastolic BP Location Tested BP Systolic BP Type 70 110 sitting Fetus Heart Rate Present A 140 Fetus Movement A Yes Comments Pt c/o chest tightness like she is coming down with the flu. Pt states that she might have another yeast infection. Pt was worried about decrease movement, pt states baby moved a lot yesterday. Pt has recently bought a house, moved and got promoted at work and feels that it is stress related. Pt to do blood work this morning. ERX for pruritis, fungal culture sent. Danger s/s, TDAP and FM kick counts all reviewed. Tdap next visit. 2 week OB. Flowsheet Date 06/26/2016 Saldaña Score Blood Edema Fundus Height Fundus Units Glucose Ketones Leukocytes Nitrite Labor Signs Protein Cervic Dilation Cervic Effacement Cervic Station 31 cm none none neg Type Weight in lbs Pre/Post Dialysis Refused 179.015623387909 BP Diastolic BP Location Tested BP Systolic BP Type 66 106 Fetus Heart Rate Present A 140 Present Fetus Movement A Yes Comments noticing varicose veins? sto cking compression socks, control after delivery is going to breastfeed. DTaP given in left arm w/o difficulty Flowsheet Date 07/07/2016 Saldaña Score Blood Edema Fundus Height Fundus Units Glucose Ketones Leukocytes Nitrite Labor Signs Protein Cervic Dilation Cervic Effacement Cervic Station none none trace 0cm 40% -2 Type Weight in lbs Pre/Post Dialysis Refused 183.223170786586 BP Diastolic BP Location Tested BP Systolic BP Type 70 100 sitting Fetus Heart Rate Present Fetus Movement Comments Pt has had a back ache since Sunday but not gotten any worse. Yesterday was better but this morning it has returned. Pt has no cramping or on and off again tightening. Pt saw a tinge of pink with a mucousy d/c looked like a little worm when wiped x 2 yesterday Pt felt lots a pressure and lower back pain. Baby active, no leaking of fluid or blood. Pt will repeat plt count today. FFN done. Wet rosey WNL with abundant WBCs--no yeast. Cx is soft with external os open but internal os closed. US showed ADAN WNL after NST with occasional variable decels and q 10 contractions, sent for further observation at [facility] Flowsheet Date 07/24/2016 Saldaña Score Blood Edema Fundus Height Fundus Units Glucose Ketones Leukocytes Nitrite Labor Signs Protein Cervic Dilation Cervic Effacement Cervic Station 32 cm none negative none neg Type Weight in lbs Pre/Post Dialysis Refused 186.092420817555 BP Diastolic BP Location Tested BP Systolic BP Type 68 110 Fetus Heart Rate Present A 140 Present Fetus Movement A Yes Comments Baby active no problems. Mod erate back pain. advised preferential parking close to work entrance. 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 Flowsheet Date 08/07/2016 Saldaña Score Blood Edema Fundus Height Fundus Units Glucose Ketones Leukocytes Nitrite Labor Signs Protein Cervic Dilation Cervic Effacement Cervic Station 36 cm none none trace Type Weight in lbs Pre/Post Dialysis Refused 184.529351719089 BP Diastolic BP Location Tested BP Systolic BP Type 58 100 sitting Fetus Heart Rate Present A 144 Present Fetus Movement A Yes Comments Pt states that she feels lik e she is unable to breathe at times. She is experiencing shortness of breath. She feels like her throat is constricting. Pt states that she is unable to eat much. Decreased appetite. Pt vomits everything she consumed. Pt says that her uncontrollable hiccups have gotten slightly better in the past day. Pt states that she is unable to sleep in any position. Fetus has been active. Pt states that she has had occasional mild contractions. Pt says that she has stopped taking all medications since Sunday at 3:30pm due to believing that she is experiencing side effects from the medication (throat swelling). Tried Reglan, famantodine,Lungs CTA, but course breath sounds noted. Will refer to pulmonolgist for further evaluation looking for other causes of why this patient has intractable hiccups.Needs GBS culture at next visit. Flowsheet Date 08/08/2016 Saldaña Score Blood Edema Fundus Height Fundus Units Glucose Ketones Leukocytes Nitrite Labor Signs Protein Cervic Dilation Cervic Effacement Cervic Station Type Weight in lbs Pre/Post Dialysis Refused BP Diastolic BP Location Tested BP Systolic BP Type Fetus Heart Rate Present Fetus Movement Comments patient scheduled with Dr. Josh Adamson's office on [address] in [place] phone # [phone] on 08/16/2016 at 315. pt was made aware and records were sent over with a fax confirmation. Flowsheet Date 08/14/2016 Saldaña Score Blood Edema Fundus Height Fundus Units Glucose Ketones Leukocytes Nitrite Labor Signs Protein Cervic Dilation Cervic Effacement Cervic Station none Cramping neg 2cm 70% - 1 Type Weight in lbs Pre/Post Dialysis Refused 188.030467791329 BP Diastolic BP Location Tested BP Systolic BP Type 74 104 sitting Fetus Heart Rate Present A 140 Present Fetus Movement A Yes Comments Pt feels like the baby dropp ed and she has relief from the hiccups. Pt noticed an increase of discharge but denies any bothersome side effects. Pt states no bleeding or leaking of fluid. Pt states that baby moving as much as before but still moving. gbs done today L&D instructions were given to patient, knows the signs when to call if in labor, cord blood banking was discussed with patient. Patient to decide if interested but declines for now. Flowsheet Date 08/21/2016 Saldaña Score Blood Edema Fundus Height Fundus Units Glucose Ketones Leukocytes Nitrite Labor Signs Protein Cervic Dilation Cervic Effacement Cervic Station trace 38 none Gerson Stauffer neg Type Weight in lbs Pre/Post Dialysis Refused 187.420676101379 BP Diastolic BP Location Tested BP Systolic BP Type 60 104 sitting Fetus Heart Rate Present A 150 Fetus Movement A Yes Comments pt reports hiccups are happe lydia approx 5 x day, as opposed to continuous. pt had a chiropractic adjustment and believes this is what helped resolve them. pt reports sporadic ctx yesterday with low back pain radiating to the front. thought she was leaking fluid but nothing came of it. + FM. SSE with negative pool, fern or nitrazine. Reassured not ROM. will repeat CBC today for slightly low platelets. Plans to BF, has pedi, and likely POP for BCM. Took tour of [facility]. RTC 1 week Flowsheet Date 08/28/2016 Saldaña Score Blood Edema Fundus Height Fundus Units Glucose Ketones Leukocytes Nitrite Labor Signs Protein Cervic Dilation Cervic Effacement Cervic Station none none trace 1cm 50% -3 Type Weight in lbs Pre/Post Dialysis Refused 184.426746206066 BP Diastolic BP Location Tested BP Systolic BP Type 70 100 sitting Fetus Heart Rate Present A 125 Present Fetus Movement A Yes Comments Pt c/o increased discharge w hich she has mentioned before. Baby is active, no loss of fluid or bleeding. Pt admits for sharp shooting pains up both legs every now and again. Pt states its not forming a pattern, but it is causing discomfort. If goes past EDC than will start NSTs and u/s fluid checks. Talked about if does not go into labor scheculing induction at 41+ weeks. kick counts and L&D instructions reviewed. Flowsheet Date 09/04/2016 Saldaña Score Blood Edema Fundus Height Fundus Units Glucose Ketones Leukocytes Nitrite Labor Signs Protein Cervic Dilation Cervic Effacement Cervic Station Type Weight in lbs Pre/Post Dialysis Refused BP Diastolic BP Location Tested BP Systolic BP Type Fetus Heart Rate Present Fetus Movement Comments Flowsheet Date 09/04/2016 Saldaña Score Blood Edema Fundus Height Fundus Units Glucose Ketones Leukocytes Nitrite Labor Signs Protein Cervic Dilation Cervic Effacement Cervic Station none none neg 3cm 80% -2 Type Weight in lbs Pre/Post Dialysis Refused 187.217966916524 BP Diastolic BP Location Tested BP Systolic BP Type 80 106 sitting Fetus Heart Rate Present A 140 Fetus Movement A Yes Comments NST reactive, showing regula r contractions but pt doesn't feel them. US with WNL ADAN, excellent FM. No hiccups at this time for pt. Occasionally still has them when she is eating. pt feeling ok just a little tired. pt reports diarrhea for the past few mornings, not at any other time. pt reports ctx but no pattern. Discussed labor s/s, danger s/s, when to call. Pt has NST on . Will do FM kick counts. Paperwork sent for Monday 09/11 induction, Dr. Urrutia aware. Flowsheet Date 10/16/2016 Saldaña Score Blood Edema Fundus Height Fundus Units Glucose Ketones Leukocytes Nitrite Labor Signs Protein Cervic Dilation Cervic Effacement Cervic Station Type Weight in lbs Pre/Post Dialysis Refused 158.519989457917 BP Diastolic BP Location Tested BP Systolic BP Type 70 100 sitting Fetus Heart Rate Present Fetus Movement Comments Menstrual History Last Menstrual Date Menses Monthly On Bcp Conception Prior Menses Frequency Hcg Plus Date Menarche Onset Age 0811/27/2015 true false 28 Genetic Screening And Infection History Question Response Note Patient's Age Will Be 35 Yea rs Or Older At Estimated Date of Delivery false Thalassemia (Portuguese, Anguillan, Mediterranean, Or Background): MCV < 80 false Neural Tube Defect (Meningom yelocele, Spina Bifida, Or Anencephaly) false Congenital Heart Defect false Down Syndrome false Heladio-Sachs (eg, Druze, Cajun , Chilean-Micronesian) false Jeanette Disease false Sickle Cell Disease Or Trait () false Hemophilia Or Other Blood Disorders false Muscular Dystrophy false Cystic Fibrosis false Swisher's Chorea false Mental Retardation/Autism true Matern al 2nd cousin Mental Retardation If Yes, Was Person Tested Fo r Fragile X? false Other Inherited Genetic Or C hromosomal Disorder false Maternal Metabolic Disorder (eg, Type 1 Diabetes, PKU) false Patient Or Baby's Father Had A Child With Defects Not Listed Above false Recurrent Loss, Or A Stillbirth true 2 miscarriages Medications (including Suppl ements, Vitamins, Herbs, OTC Drugs), Illicit/Recreational Drugs, Alcohol true PNV If Yes, Agent(s) And Strength/Dosage false Any Other Genetic History false Live With Someone With TB Or Exposed To TB false Patient Or Partner Has Histo ry Of Genital Herpes false Rash Or Viral Illness Since Last Menstrual Period false History Of STD, Gonorrhea, C hlamydia, HPV, Syphilis true HPV Other Infection History false Familial Dysautonomia (Ashke nazi Druze) false Spinal Muscular Atrophy false Parkinson Disease false Plans and Education First Trimester Discussed Date Discussion Item Discussion Note Discuss ed By 01/30/2016 Anticipated course of care [email or web address] 01/30/2016 Alcohol [email or web address] 01/30/2016 Environmental/work hazards p [email or web address] 01/30/2016 Screening for aneuploidy pmo ran2 01/30/2016 Nutrition counseling ; special diet; dietary precautions (mercury, listeriosis) [email or web address] 01/30/2016 Childbirth classes/hospital facilities [email or web address] 01/30/2016 HIV and other routine tests [email or web address] 01/30/2016 Risk factors identif ied by history [email or web address] 01/30/2016 Weight gain counseling pmora n2 01/30/2016 Exercise [email or web address] 01/30/2016 Teratogens [email or web address] 01/30/2016 Use of any medicatio ns (including supplements, vitamins, herbs, or OTC drugs) [email or web address] 01/30/2016 pmoran2 01/30/2016 Sexual activity [email or web address] 01/30/2016 Tobacco/smoking cess ation counseling (ask, advise, assess, assist, and arrange) [email or web address] 01/30/2016 Illicit/recreational drugs p [email or web address] 01/30/2016 Dental care [email or web address] 01/30/2016 Travel [email or web address] 01/30/2016 Seat belt use [email or web address] 01/30/2016 Indications for ultrasonography [email or web address] 01/30/2016 Avoidance of saunas or hot tubs [email or web address] 01/30/2016 Toxoplasmosis precautions (cats/raw meat) pmoran2 Second Trimester Discussed Date Discussion Item Discussion Note Discuss ed By Third Trimester Discussed Date Discussion Item Discussion Note Discuss ed By Delivery Information Delivery Date Delivery Type Labor Anesthesia Weeks Gestation Incision Type Labor Labor Length Hrs Delivered By Post Complications Tubal Sterilization Discharge Date Comments 7 40.3 Discharge Information Feeding Method Contraceptive Method Maternal HG B and HCT Levels Breast Ob Episode Information Episode Created Date Number of Fetuses Patient Bloodtype Patient rh Status Prepregnancy Weight lbs Domestic Partner Domestic Partner Phone Father Name Warehouse Packaging Supervisor Status 01/28/20 16 1 CLOSED Fetus Data First Name Last Name Admitted to NICU Weight (g) Sex Living Outcome Pediatric Complications Fetus ID Race Codes Race Delivery Type , Spontane ous [id number] Raghav Calculation Initial Raghav Date Initial Exam Date Initial Exam Provider Initial Ultrasound Date Last Menstrual Period Date Ultra Sound Weeks Gestation 0 Eighteen To Twenty Week Raghav Update Ultra Sound Date Fundal Height At Umbil Quickening Date Ultra Sound Latest Weeks Gestation Final Raghav Confirmed By Final Raghav Confirmed Date Final Raghav Date Ultra Sound Latest Days Gestation 0 0 Menstrual History Last Menstrual Date Menses Monthly On Bcp Conception Prior Menses Frequency Hcg Plus Date Menarche Onset Age Delivery Information Delivery Date Delivery Type Labor Anesthesia Weeks Gestation Incision Type Labor Labor Length Hrs Delivered By Post Complications Tubal Sterilization Discharge Date Comments 4 Discharge Information Feeding Method Contraceptive Method Maternal HG B and HCT Levels Ob Episode Information Episode Created Date Number of Fetuses Patient Bloodtype Patient rh Status Prepregnancy Weight lbs Domestic Partner Domestic Partner Phone Father Name Warehouse Packaging Supervisor Status 01/28/20 16 1 CLOSED Fetus Data First Name Last Name Admitted to NICU Weight (g) Sex Living Outcome Pediatric Complications Fetus ID Race Codes Race Delivery Type , Spontane ous [id number] Raghav Calculation Initial Raghav Date Initial Exam Date Initial Exam Provider Initial Ultrasound Date Last Menstrual Period Date Ultra Sound Weeks Gestation 0 Eighteen To Twenty Week Raghav Update Ultra Sound Date Fundal Height At Umbil Quickening Date Ultra Sound Latest Weeks Gestation Final Raghav Confirmed By Final Raghav Confirmed Date Final Raghav Date Ultra Sound Latest Days Gestation 0 0 Menstrual History Last Menstrual Date Menses Monthly On Bcp Conception Prior Menses Frequency Hcg Plus Date Menarche Onset Age Delivery Information Delivery Date Delivery Type Labor Anesthesia Weeks Gestation Incision Type Labor Labor Length Hrs Delivered By Post Complications Tubal Sterilization Discharge Date Comments 6 Discharge Information Feeding Method Contraceptive Method Maternal HG B and HCT Levels
[2025-02-18 03:58] LABS: Follicle Stimulating Hormone 8.9 mIU/mL
== END ==
LOC: HO.CARD 14:06
PROVIDERS: PCP Nurse Practitioner Family; Visit Provider Psychiatry & Neurology Psychiatry
DX: F41.1 Generalized anxiety disorder (principal); F39 Unspecified mood [affective] disorder; Z13.1 Encounter for screening for diabetes mellitus; Z13.0 Encounter for screening for diseases of the blood and blood-forming organs and certain disorders involving the immune mechanism
CPT/HCPCS: 36415; 80053; 81001; 82306; 82465; 82607; 82746; 83001; 83002; 83036; 83090; 83540; 83735; 83970; 84100; 84425; 84439; 84443; 84480; 84481; 85025; 85652; 93005

== ENCOUNTER → 2025-02-17 14:18 | Outpatient (BNV) | payer OTHER, SELFPAY | PROVIDERS: PCP Nurse Practitioner Family; Visit Provider Internal Medicine | DX: R00.1 Bradycardia, unspecified (principal) | CPT/HCPCS: 93010 ==

== ENCOUNTER → 2025-02-20 13:30 | Outpatient (BNV) | payer OTHER, SELFPAY | PROVIDERS: Visit Provider Psychiatry & Neurology Psychiatry | DX: F31.9 Bipolar disorder, unspecified (principal); F43.10 Post-traumatic stress disorder, unspecified | CPT/HCPCS: 90792; 99213 ==

== ENCOUNTER 2025-03-09 13:15 | Outpatient (RCR) | payer OTHER, SELFPAY ==
[2025-02-16 09:40] VITALS: BP 90/60; PULSE 56; TEMP 37.2
[2025-02-16 09:44] VITALS: BMI 21.0
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
--- NOTE | 2025-02-18 12:01 | HO.PHP ---
PHP staff member placed a referral for med management and OP therapy through [facility] for Gabby and are awaiting a call back with the appointment dates and times.
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
--- NOTE | 2025-02-20 13:10 | HO.PHP ---
Client?s case was open and reviewed in groups.?
--- NOTE | 2025-02-23 13:42 | HO.PHP ---
PHP staff member spoke to Yovana through Luciana, who needed confirmation that Gabby is in attendance to the program and when her tentative discharge date is. [facility] staff member was able to provide Yovana with that information. No further information was needed.
--- NOTE | 2025-02-23 15:30 | HO.PHP ---
PHP staff member reached out to [facility] and spoke to Robina around Gabby's appointment dates and times for OP therapy and med management. Gabby has a telehealth appointment on March 06, 2025 at 11 AM with Lauro and has a therapy appointment on March 10, 2025 at 2 PM with Daniel.
--- NOTE | 2025-02-24 10:38 | HO.PHPPROGNO ---
Subjective Subjective Date of Service: 02/24/25 Reason For Visit: anxiety,depression,PTSD Interim History: Patient was seen and discussed with nursing. Records were reviewed. Current medications were reviewed. She has been tolerating the Abilify after the initial several days of side effects which have subsided. She is having less anxiety attacks and has been taking the buspirone which she is running out of and a months script was sent in. She continues to be having difficulties with organization, concentration, cognitive functioning. She continues not to be able to function at her job which is of high demand and intensity. No SI. Sleeping with interruptions. Questions about ADHD discussed however she will need to follow that up after discharge. We are trying to her connector to outpatient services. [place] forearms were filled out. She has been given and extension of her leave from work until mid April of 2025. Labs were reviewed. Slight elevation of homocystine Side effects from medications: No Attending Groups: Yes Review of Systems Review of Systems Cognitive issues, organization alert issues, anxiety attacks Yes all other systems are reviewed and are negative Mental Status Exam Mental Status Exam Narrative: In today's visit she is alert, oriented and pleasant. Speech is slightly pressured. No signs of psychosis. No overt signs of hypomania. She is anxious and having difficulties with concentration, organization, needing to right most things down to retain. No SI. Judgment is intact. Diagnostics Vital Signs (24Hr): BMI result Body Mass Index 21.0 Assessment & Plan Assessment & Plan (1) Bipolar disorder, unspecified: Status: Acute Code(s): F31.9 - Bipolar disorder, unspecified (2) PTSD (post-traumatic stress disorder): Status: Acute Code(s): F43.10 - Post-traumatic stress disorder, unspecified Plan Continue current regimen and plans. She will stay on her current medications which we reviewed individually. Patient educated on: diagnosis and medication risk/benefits Certification I certify that partial hospital treatment is medically necessary due to the symptoms and problems resulting from the patient's mental illness and the failure to treat the patient at the partial hospital level of care would likely result in the patient requiring inpatient psychiatric care which could not be prevented at a less intensive level of care. Total time managing care of this patient today ____ minutes. Discharge Plan Discharge Attending provider: Lashell Carlson Medications: New aripiprazole 2 mg tablet 2 mg PO BEDTIME Qty: 20 0RF Continued levonorgestrel-ethinyl estrad 0.1-20 mg-mcg tablet 1 tab PO DAILY fluoxetine 20 mg capsule 20 mg PO DAILY lorazepam 0.5 mg tablet 0.5 mg PO DAILY PRN (Reason: anxiety) 14 Days Qty: 14 0RF buspirone 5 mg Tablet 7.5 mg PO TID 30 Days Qty: 135 0RF Print Language: Kiswahili
--- NOTE | 2025-02-27 11:09 | P.PNPSP_ITS ---
Subjective Subjective Date of Service: 02/27/25 Reason For Visit: anxiety,depression,PTSD Healthcare Proxy: No Guardianship: No Medical Problems Affecting Mental Status: No Interim History: Patient was seen again in follow-up around her medications. She states that the plan with Dr. Carlson was to increase the Abilify. She had some early side effects which have subsided. She will go up to 3 mg for few days until she meets with her next week. She also states that she has been very hypersensitive to noise. I did not find anything that might related to her medications and feel that it is more related to her anxiety and suggested increasing the buspirone to 10 mg t.i.d. and using lorazepam p.r.n. at times that she is feeling overwhelmed with her reaction to noise. She also brought up the issue of ADHD which she will discuss next week and I do not 1 of add another new medication to her regimen at this time. Her stay here has been extended to the end of next week. Review of Systems Review of Systems Hypersensitivity to noises and sounds Yes all other systems are reviewed and are negative Mental Status Exam Mental Status Exam Narrative: In today's visit she is alert, oriented and pleasant. Speech is slightly pressured. No signs of psychosis. No overt signs of hypomania. She is anxious and having difficulties with concentration, organization, needing to right most things down to retain. No SI. Judgment is intact. Diagnostics Vital Signs (24Hr): BMI result Body Mass Index 21.0 Assessment & Plan Assessment & Plan (1) Bipolar disorder, unspecified: Status: Acute Code(s): F31.9 - Bipolar disorder, unspecified Plan Increase Abilify to 3 mg over the weekend, BuSpar to 10 mg t.i.d. and use the p.r.n. Ativan for extreme hypersensitivity to noise and for anxiety of course which I believe the hypersensitive tea to noise may be related to Certification I certify that partial hospital treatment is medically necessary due to the symptoms and problems resulting from the patient's mental illness and the failure to treat the patient at the partial hospital level of care would likely result in the patient requiring PHP psychiatric care which could not be prevented at a less intensive level of care. Total time managing care of this patient today ____ minutes. Discharge Plan Discharge Attending provider: Lashell Carlson Medications: New aripiprazole 2 mg tablet 2 mg PO BEDTIME Qty: 20 0RF Continued levonorgestrel-ethinyl estrad 0.1-20 mg-mcg tablet 1 tab PO DAILY fluoxetine 20 mg capsule 20 mg PO DAILY lorazepam 0.5 mg tablet 0.5 mg PO DAILY PRN (Reason: anxiety) 14 Days Qty: 14 0RF buspirone 5 mg Tablet 7.5 mg PO TID 30 Days Qty: 135 0RF Stand Alone Forms: Patient Portal Discharge page Print Language: Greenlandic
--- NOTE | 2025-03-05 21:54 | HO.PHPPROGNO ---
Subjective Subjective Date of Service: 03/05/25 Reason For Visit: anxiety,depression,PTSD Interim History: Patient seen for follow-up. Review medications. Feels there has definitiely been a shift had worked up to 3 mg [place] was able to start doing some day-to-day tasks/activities but had difficulty attending to these tasks for long. Short attention span. Mood had been imprving but notes she ran out of the ABilify 3 days ago and is feeling again more scattered irritable and noted she was backtracking off the meds. She denies any side effects at 3 mg and will start at 5 mg tonight. WIll also renew 2 mg for now to use as prn. Review lab results and will start folate and B12. 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 Will improve dietary intake, which had . Vit D sufficient. Calcium not elevated. WIll follow up with pcp Medication Compliance: Yes Side effects from medications: No Attending Groups: Yes Review of Systems Acute medical concerns: Yes Review of Systems Review of Systems Hypersensitivity to noises and sounds Yes all other systems are reviewed and are negative Mental Status Exam Mental Status Exam Narrative: Patient Appearance: Well Grooomed Patient Orientation: Person, Place, Time and Situation Level of Consciousness: Awake and Alert Patient Behavior: Talkative, Hyperactive, Cooperative Mood Description: less depressed,irritable Affect Description: Cheerful, Anxious, less Labile and Expansive Patient Cognition Impaired: Yes Ability to Follow Directions: Good Speech Pattern: Rambling, Rapid and Pressured Memory Description: Working Impaired Hallucinations: None Delusions: Not Present Perceptual Disturbances: Depersonalization Thought Process: Racing and Distracted Thought Content: positive for Circumstantial, positive for Tangential and positive for Logical Abnormal Motor Activity Signs and Symptoms: Restlessness Judgement: Fair Patient Appearance: Well Grooomed Patient Orientation: Person, Place, Time and Situation Level of Consciousness: Awake and Alert Patient Behavior: Talkative, Hyperactive, Cooperative (initially guarded/superificial, but improved with interaction) and Distractible Mood Description: Calm, Depressed, Angry and Nervous Affect Description: Cheerful, Anxious, Labile and Expansive Patient Cognition Impaired: Yes Ability to Follow Directions: Good Speech Pattern: Perseverating, Difficulty Finding Words, Rambling, Rapid and Pressured Memory Description: Working Impaired Diagnostics Vital Signs (24Hr): BMI result Body Mass Index 21.0 Assessment & Plan Assessment & Plan (1) Bipolar disorder, unspecified: Status: Acute Code(s): F31.9 - Bipolar disorder, unspecified (2) PTSD (post-traumatic stress disorder): Status: Acute Code(s): F43.10 - Post-traumatic stress disorder, unspecified (3) Attention-deficit hyperactivity disorder, unspecified type: Status: Acute Code(s): F90.9 - Attention-deficit hyperactivity disorder, unspecified type Plan extend time at [facility] increase ABilify toward 5 mg qd start Ritalin 5 mg qd prn, titrate until effective dose plan to transition to COncerta 18 mg qam Patient educated on: diagnosis and medication risk/benefits Informed Consent: understands Reason for contiued partial hosp. stay Substantial Risk for: med/psych decompensation Certification I certify that partial hospital treatment is medically necessary due to the symptoms and problems resulting from the patient's mental illness and the failure to treat the patient at the partial hospital level of care would likely result in the patient requiring inpatient psychiatric care which could not be prevented at a less intensive level of care. Total time managing care of this patient today _30___ minutes. Discharge Plan Discharge Attending provider: Lashell Carlson Medications: New aripiprazole 2 mg tablet 2 mg PO BEDTIME Qty: 20 0RF aripiprazole 2 mg tablet 2 mg PO BEDTIME Qty: 30 0RF aripiprazole 5 mg tablet 5 mg PO BEDTIME Qty: 30 0RF mecobalamin (vitamin B12) [B12 Active] 1,000 mcg tablet,chewable 1,000 mcg PO DAILY Qty: 30 3RF methylphenidate HCl [Ritalin] 5 mg tablet 5 mg PO DAILY Qty: 30 0RF Rx Instructions: Partial Fill upon patient request. For ADHD methylphenidate HCl [Concerta] 18 mg tablet extended release 24hr 18 mg PO QAM Qty: 14 0RF Rx Instructions: Partial Fill upon patient request. For ADHD thiamine HCl (vitamin B1) 100 mg tablet 100 mg PO DAILY Qty: 30 0RF Continued levonorgestrel-ethinyl estrad 0.1-20 mg-mcg tablet 1 tab PO DAILY fluoxetine 20 mg capsule 20 mg PO DAILY buspirone 5 mg Tablet 7.5 mg PO TID 30 Days Qty: 135 0RF lorazepam 0.5 mg tablet 0.5 mg PO DAILY PRN (Reason: anxiety) 14 Days Qty: 14 0RF Stand Alone Forms: Patient Portal Discharge page Patient Education: ADHD in Adults (ED), ADHD in Adults (DC), Bipolar Disorder (ED), Bipolar Disorder (DC) Print Language: Welsh
--- NOTE | 2025-03-06 08:33 | HO.PHP ---
Addendum entered by Tereza Apple [facility] 03/06/25 08:34: [facility] staff member informed Yovana if she has any further questions to reach out. This was left in the voicemail as well. Original Note: PHP staff member left a VM for oYvana through Luciana, due to Yovana reaching out requesting for an update on when Gabby's new discharge date will be. [facility] staff member left a voicemail stating that Gabby's last day within the program will be on March 09, 2025.
--- NOTE | 2025-03-09 20:03 | P.PNPSP_ITS ---
Subjective Subjective Date of Service: 03/09/25 Reason For Visit: anxiety,depression,PTSD Interim History: Patient seen for follow-up, anticipating discharge at the end of program today.? Ear pain has resolved since lowering dose of buspirone from 10 mg TID to 7.5 mg TID. Abilify is currently at 5 mg. Will keep ABilify 2 mg in AM and has been well- tolerated. Ritalin and Concerta for attention/focus. Vit B12 and B1 started due to deficiency and insufficient levels, respectively. Reports no acute issues or concerns. Medication compliant, medications well- tolerated. Denies any adverse effects.? Mood is stable.? Denies any hopelessness or SI. Denies thoughts of harming self or others at this time. Denies any aggressive ideation or HI. Denies any paranoia or AH or VH. Sleep, appetite, energy stable. Medication Compliance: Yes Side effects from medications: No Attending Groups: Yes Review of Systems Acute medical concerns: No Review of Systems Review of Systems Hypersensitivity to noises and sounds Yes all other systems are reviewed and are negative Mental Status Exam Mental Status Exam Narrative: Alert, oriented, in no acute distress. Bright, energetic, but calmer, cooperative. Mood stable, affect appropriate. Speech normal. Thought process linear, coherent, more goal-directed. Thought content related to stressors, future-oriented, denies any helplessness, hopelessness or SI.? No aggressive ideation or HI. No paranoia or delusional content elicited. No evidence of psychosis. Insight and judgment fair-good. Patient Appearance: Well Grooomed Patient Orientation: Person, Place, Time and Situation Level of Consciousness: Awake and Alert Patient Behavior: Talkative, Hyperactive, Cooperative (initially guarded/superificial, but improved with interaction) and Distractible Mood Description: Calm, Depressed, Angry and Nervous Affect Description: Cheerful, Anxious, Labile and Expansive Patient Cognition Impaired: Yes Ability to Follow Directions: Good Speech Pattern: Perseverating, Difficulty Finding Words, Rambling, Rapid and Pressured Memory Description: Working Impaired Diagnostics Vital Signs (24Hr): BMI result Body Mass Index 21.0 Assessment & Plan Assessment & Plan (1) Bipolar disorder, unspecified: Status: Acute Code(s): F31.9 - Bipolar disorder, unspecified Plan Discharge from [facility] Continue regular medications? Refills sent to pharmacy Will defer further medication management to outpatient provider *Safety plan reviewed *Discharge diagnoses, treatment course, discharge plan have been reviewed with patient (including medication regime, medication management, potential side effects) as well as treatment rationale were also revisited *Discharge paperwork signed and given to patient, copy sent for scanning to chart Patient educated on: diagnosis and medication risk/benefits Informed Consent: understands Reason for contiued partial hosp. stay Substantial Risk for: stable for discharge Certification I certify that partial hospital treatment is medically necessary due to the symptoms and problems resulting from the patient's mental illness and the failure to treat the patient at the partial hospital level of care would likely result in the patient requiring inpatient psychiatric care which could not be prevented at a less intensive level of care. Total time managing care of this patient today __30__ minutes. Discharge Plan Discharge Attending provider: Lashell Carlson Medications: New aripiprazole 2 mg tablet 2 mg PO BEDTIME Qty: 20 0RF aripiprazole 2 mg tablet 2 mg PO BEDTIME Qty: 30 0RF aripiprazole 5 mg tablet 5 mg PO BEDTIME Qty: 30 0RF mecobalamin (vitamin B12) [B12 Active] 1,000 mcg tablet,chewable 1,000 mcg PO DAILY Qty: 30 3RF methylphenidate HCl [Ritalin] 5 mg tablet 5 mg PO DAILY Qty: 30 0RF Rx Instructions: Partial Fill upon patient request. For ADHD methylphenidate HCl [Concerta] 18 mg tablet extended release 24hr 18 mg PO QAM Qty: 14 0RF Rx Instructions: Partial Fill upon patient request. For ADHD thiamine HCl (vitamin B1) 100 mg tablet 100 mg PO DAILY Qty: 30 0RF Continued levonorgestrel-ethinyl estrad 0.1-20 mg-mcg tablet 1 tab PO DAILY fluoxetine 20 mg capsule 20 mg PO DAILY buspirone 5 mg Tablet 7.5 mg PO TID 30 Days Qty: 135 0RF lorazepam 0.5 mg tablet 0.5 mg PO DAILY PRN (Reason: anxiety) 14 Days Qty: 14 0RF Stand Alone Forms: Patient Portal Discharge page Patient Education: ADHD in Adults (ED), ADHD in Adults (DC), Bipolar Disorder (ED), Bipolar Disorder (DC) Print Language: Bulgarian
== END 2025-03-09 23:59 | disposition home or self-care (01) ==
LOC: HO.PHPA 13:15
PROVIDERS: Visit Provider Psychiatry & Neurology Psychiatry
DX: F31.9 Bipolar disorder, unspecified (principal); F43.10 Post-traumatic stress disorder, unspecified; F90.9 Attention-deficit hyperactivity disorder, unspecified type; Z79.899 Other long term (current) drug therapy
CPT/HCPCS: 90791; 90853